=== PATIENT | male | born 1960 | race African-American/Black ===

== ENCOUNTER 2016-09-28 21:10 | Inpatient (IN) | payer OTHER ==
--- NOTE | 2016-09-28 21:30 | ED Physician Chart ---
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 Allergies:: Allergies Allergy/AdvReac Type Severity Reaction Status Date / Time No Known Allergies Allergy Verified 09/28/16 21:19 Historian:: Patient Review:: Nurse's Note Reviewed Review of Systems - Review of Systems General/Constitutional: No fever, No chills, No weight loss, No weakness, No diaphoresis, No edema, No loss of appetite Skin: No skin lesions, No rash, No bruising Head: No headache, No light-headedness Eyes: No loss of vision, No pain, No diplopia ENT: No earache, No nasal drainage, No sore throat, No tinnitus, Other ( Mandible Pain) Neck: No neck pain, No swelling, No thyromegaly, No stiffness, No mass noted Cardio Vascular: No chest pain, No palpitations, No PND, No orthopnea, No edema Pulmonary: No SOB, No cough, No sputum, No wheezing GI: No nausea, No vomiting, No diarrhea, No pain, No melena, No hematochezia, No constipation, No hematemesis G/U: No dysuria, No frequency, No hematuria Musculoskeletal: No bone or joint pain, No back pain, No muscle pain Endocrine: No polyuria, No polydipsia Psychiatric: No prior psych history, No depression, No anxiety, No suicidal ideation Hematopoietic: No bruising, No lymphadenopathy Allergic/Immuno: No urticaria, No angioedema Neurological: No syncope, No focal symptoms, No weakness, No paresthesia, No headache, No seizure, No dizziness, No confusion, No vertigo Past Medical History - Past Medical History Past Medical History: HTN, Other (Throat Cancer; Osteomyelitis) Family History: HTN, Cancer Social History: Smoker, Alcohol, No Drug Use Surgical History: other (Radical Neck Surgery) Psychiatricy History: Depression Medication: Reviewed Family Medical History - Family Member Mother History Unknown: Yes Physical Exam - Physical Examination General/Constitutional: Awake, Well-developed, well-nourished, Alert, No distress, GCS 15, Non-toxic appearing, Ambulatory Head: Atraumatic Eyes: Lids, conjuctiva normal, PERRL, EOMI Skin: Nl inspection, No rash, No skin lesions, No ecchymosis, Well hydrated, No lymphadenopathy ENMT: External ears, nose nl, Nasal exam nl, Lips, teeth, gums nl Other ENMT comments:: Right Mandible open Wound with Cellulitis and discharge Neck: Nontender, Full ROM w/o pain, No JVD, No nuchal rigidity, No bruit, No mass, No stridor Respiratory: Nl effort/Exclusion, Clear to Auscultation, No Wheeze/Rhonchi/Rales Cardio Vascular: RRR, No murmur, gallop, rubs, NL S1 S2 GI: No tenderness/rebounding/guarding, No organomegaly, No hernia, Normal BS's, Nondistended, No mass/bruits, No McBurney tenderness : No CVA tenderness Extremities: No tenderness or effusion, Full ROM, normal strength in all extremities, No edema, Normal digits & nails Neuro/Psych: Alert/oriented, DTR's symmetric, Normal sensory exam, Normal motor strength, Judgement/insight normal, Mood normal, Normal gait, No focal deficits Misc: normal gait, Normal back, No paraspinal tenderness ED Septic Shock - . Is Septic Shock (SBP<90, OR Lactate>4 mmol\L) present?: No - <6hrs of presentation: Assessment of Lungs: Lung CTA bilateral, Ventilator, Decreased BS, Rhonchi, No Rhonchi, Rales, No Rales, Wheezing, No Wheezing, Stridor, No Stridor, Other, Documented in PE Assessment of Heart: RRR, Thrill, No thrill, Gallops, No Gallops, S3, S4, Rub, No Rub, Murmur, No Murmur, Other, Documented in PE EKG Interpretation: NSR, ST elevation, No ST elevation, ST depression, No ST depression, PVCs, Bigeminy, Trigeminy, No Ectopy, Tachy, Librado, SVT, A-Flutter, A-Fib, AV Block, Other, Documented in Result Capillary refill evaluation: Capillary refill < 2 secs, Capillary refill > 2 secs, Other, Documented in PE Skin Exam: Warm, Dry, Good Turgur, Poor Turgor, Pallor, No Pallor, Diaphoretic, No Diaphoresis, Mottled, No Mottling, Cyanotic, Edema, No Edema, Erythema, No Erythema, Other, Documented in PE Reassessment (Disposition) - Reassessment Reassessment Condition:: Improved - Diagnosis Diagnosis:: Right Mandible Fracture; Osteomyelitis; Throat CA: Mandible Cellulitis and Wound - Aftercare/Follow up Instructions Aftercare/Follow-Up Instructions:: Counseled pt & family regarding lab results/ diagnosis & need follow up - Patient Disposition Admitted to:: Med/Surg Spoke to:: Dr. Samayoa Time:: 01:15 (pt to be admitted to Dr. Samayoa's Service) Condition at Disposition:: Stable, Improved ED Discharge Plan - Patient Disposition Admit/Discharge/Transfer: Acute Care w/in this hosp
[2016-09-28] MEDS ORDERED: Morphine Sulfate 2 mg/mL 1mL Syr IVP STA (21:36)
[2016-09-28] MEDS ORDERED: cefTRIAXone 1 GM in Sodium Chloride 0.9% 50 ML IV ONE (21:36)
[2016-09-28] MEDS ORDERED: Sodium Chloride 0.9% 500 ML IV ONE (21:42)
[2016-09-28] MEDS ORDERED: Morphine Sulfate 2 mg/mL 1mL Syr ONE (21:44)
[2016-09-28 22:01] LABS: % BASOPHILS 0.1 % (0.0-2.0); % EOSINOPHILS 2.6 % (0.0-5.0); % LYMPHOCYTES 22.1 % (20.0-50.0); % MONOCYTES 8.2 % (2.0-10.0); HEMATOCRIT 38.7 % (39.0-49.0); HEMOGLOBIN 12.8 gm/dL (13.2-17.3); MEAN CELL VOLUME 87.8 fl (80-99); MEAN CORPUSCULAR HEMOGLOBIN 29.1 pg (26.0-30.0); MEAN CORPUSCULAR HGB CONC 33.2 pg (28.0-36.0); MEAN PLATELET VOLUME 6.6 fl; NEUTROPHILE ABSOLUTE 3.8 Th/cmm (1.8-8.0); RED BLOOD COUNT 4.41 Mil/cmm (4.30-5.70); RED CELL DISTRIBUTION WIDTH 13.2 % (11.5-20.0); WHITE BLOOD COUNT 5.6 Th/cmm (4.8-10.8)
[2016-09-28 22:18] LABS: PROTHROMBIN TIME (TEST) 10.4 SECONDS (9.5-11.5)
[2016-09-28 22:19] LABS: ALKALINE PHOSPHATASE 72 U/L (34-104); ANION GAP 11.2 (7.0-16.0); BILIRUBIN,TOTAL 0.3 mg/dL (0.3-1.0); BUN - UREA NITROGEN 20 mg/dL (7-25); BUN/CREATININE RATIO 18.2; CALCIUM SERUM 9.3 mg/dL (8.6-10.3); CARBON DIOXIDE 26.8 mEq/L (21.0-31.0); CHLORIDE 101 mEq/L (98-107); CREATININE - SERUM 1.1 mg/dL (0.7-1.3); GLUCOSE 128 mg/dL (70-105); SGOT 15 U/L (13-39); SGPT/ALT 9 U/L (7-52); SODIUM SERUM 135 mEq/L (136-145)
[2016-09-28 22:24] LABS: PLATELET COUNT 297 Th/cmm (150-400)
[2016-09-29] MEDS ORDERED: Morphine Sulfate 2 mg/mL 1mL Syr IVP STA
[2016-09-29 04:42] VITALS: BP 114/88
[2016-09-29] MEDS: D5-0.45NS 1,000 ML IV SCH ×2 (06:05→20:46)
[2016-09-29] MEDS: Morphine Sulfate 2 mg/mL 1mL Syr IVP PRN ×3 (06:07→21:45)
[2016-09-29] MEDS ORDERED: Pneumococcal Vaccine 0.5 mL Vial IM ONE (10:00)
[2016-09-29] MEDS ORDERED: Influenza Vaccine 0.5 mL Syr IM ONE (10:00)
--- NOTE | 2016-09-29 12:22 | History & Physical ---
PATIENT IDENTIFICATION: A 56-year-old male. CHIEF COMPLAINT: "I have a jaw pain and I have osteonecrosis of my jaw." HISTORY OF PRESENT ILLNESS: A 56-year-old -Chinese male who has a history of hypertension, BPH, DJD, history of squamous cell carcinoma of throat, which was diagnosed in 2009. The patient underwent significant therapy including radiation. The patient developed osteonecrosis of the jaw. The patient stated that he has been having open wound on his right lower mandible area and having significant amount of pain. He has a primary doctor in [place]. According to his statement, he has been going to [place] and he is not getting his pain medicine. He is calling his [facility] to send the maxillofacial surgeon in order to take care of his underlying problem, but he is running around. He is frustrated and tired. He decided to come to the hospital because he has recently moved to in this area. The patient was seen by Emergency Room MD and I was advised to admit this patient for osteomyelitis, though we do not have ENT Service available in our hospital. PAST MEDICAL HISTORY: Remarkable for: 1. Hypertension. 2. BPH. 3. DJD. MEDICATIONS AT HOME: Lisinopril, Flomax and NSAID, which he does not remember. ALLERGIES: The patient is not allergic to medication. SOCIAL HISTORY: The patient lives in truck and he is able to park his truck in somebody's house and using the kitchen and bathroom. The patient has history of smoking, but no alcohol or drug use. FAMILY MEDICAL HISTORY: Remarkable for hypertension. REVIEW OF SYSTEMS: The patient is complaining about the pain on the right lower joint area. Denies any chest pain, short of breath. Denies any fever or chills. Denies any abdominal pain. Denies any hematemesis. Does have some occasional difficulty in swallowing. Denies any abdominal pain. Denies any nausea, vomiting, diarrhea, dysuria, hematuria, hematochezia, melena. No seizure or syncopal episode. PHYSICAL EXAMINATION: GENERAL: The patient is alert, awake, oriented, lying in the bed without any acute distress. VITAL SIGNS: Temperature 99.4, pulse 85, respiratory rate is 19, blood pressure 114/80. HEENT: Normocephalic, atraumatic. Pupils are reactive to light. There is significant amount of swelling on the right lower mandible area noted with open wound, which is draining for serosanguineous discharge. The patient has extensive surgical changes in right buccal mucosa noted with few absent teeth noted. Unable to open his oral cavity, unable to visualize posterior pharynx. NECK: Supple, no JVD, lymphadenopathy, thyromegaly HEART: Both heart sounds are regular. No S3, no S4, no murmur. CHEST: Lung equal in expansion, no wheezing, no crackles. ABDOMEN: Soft. No guarding, no rigidity. Liver and spleen palpable. No palpable mass. EXTREMITIES: No edema, no cyanosis, no clubbing. Pulses are +2. No calf tenderness noted. NEUROLOGIC: Nonfocal. AVAILABLE DIAGNOSTIC DATA: CT scan of the neck remarkable for: 1. Fracture to the body of the right mandible, which may be secondary to pathological fracture from neoplasm versus osteomyelitis. 2. Soft tissue swelling also noted in the right face, ____ mucosal thickening in the paranasal sinus also noted. There is a subcentimeter cervical chain lymph node swelling noted. Anterior ____ scarring noted within the upper lobe. This patient's EKG sinus rhythm, no ST-T changes representing acute ischemia. White count of 5.6, hemoglobin 12.8. PT, PTT are normal. BUN and creatinine is normal. Glucose of 128. Troponin is less than 0.01. Albumin of 3.8. CLINICAL IMPRESSION: 1. Fracture, right mandible able with possible osteomyelitis and cellulitis. The patient has open wound, needs ear, nose and throat evaluation and with long-term antibiotic. 2. Hypertension. 3. Benign prostatic hypertrophy. 4. Degenerative joint disease. 5. Chronic pain. PLAN: The patient is admitted at this time to medical floor, IV antibiotic Zosyn and vancomycin started. Infectious Disease consultation requested. Case management to look into the case, and transfer this patient to appropriate facility where the patient can have additional care as well. The patient will be placed on mechanical soft diet. Care plan has been reviewed and discussed with the patient, who was agreed with treatment plan. I have answered all his questions appropriately as well and adequate pain management will be provided. JOB# [id number]
--- NOTE | 2016-09-29 12:30 | Diagnostic Imaging Report ---
CT soft tissue the neck without IV contrast History: Pain Comparison: None Total DLP 445, CTD I 14 Technical axial images were obtained from the skull base to the upper thorax without IV contrast. Reconstructions were made. Findings: Exam is limited due to lack of IV contrast. There is almost complete opacification of right maxillary sinus. There is additional generalized mucosal thickening of the remaining visualized paranasal sinuses. There is ill-defined destructive change is seen along the body of the right mandible. Diffuse dental disease is also noted. There are also erosive changes and destructive changes seen along the throughout the right maxilla. Diffuse inflammatory changes are seen throughout the fascial superficial fat planes right greater than left with areas of soft tissue swelling. Assessment for fluid collection is limited as IV contrast was not administered. The thyroid gland appears atrophic. The epiglottis is grossly unremarkable. No prevertebral soft tissue swelling. The airways intact. Borderline prominent right parotid lymph nodes are noted. Chronic changes of the lung apices are seen with probable areas of scarring. Atelectatic changes of the lung apices are also noted. IMPRESSION: Destructive changes and probable fracture through the body of the right mandible. This may be secondary etiologies such as osteomyelitis or possibly neoplastic process. There are also diffuse erosive changes seen throughout the right maxilla along the base of the right maxillary sinus. Again these findings may be due to osteomyelitis and severe dental disease or less likely neoplastic process. Diffuse facial soft tissue swelling, right greater than left, most electronics parts sales representative of cellulitis Paranasal sinus inflammatory disease with almost complete opacification of the right maxillary sinus. Intact airway. Borderline prominent parotid gland lymph nodes nonspecific and possibly reactive. Note exam is limited due to lack of IV contrast .
--- NOTE | 2016-09-29 13:11 | Admit Criteria Form ---
Admit Criteria Forms - Admit Criteria Diagnosis: HEAD AND NECK DISEASE GRG Clinical Indications for Admission to Inpatient Care ( Place 'X' for any and all applicable criteria): Hospital admission is needed for appropriate care of the patient because of ANY ONE of the following (1)(2): [ ]I. Severe sinusitis as indicated by ANY ONE of the following (6)(13)(21) [ ]a) Suspected ROOF FITTER infection [ ]b) Bacteremia [ ]c) Hemodynamic instability [ ]d) Outpatient and observation care antibiotic treatment have failed or are not considered appropriate [ ]e) Surgical drainage needed that cannot be performed on an outpatient basis or observation. setting [ ]f) Suspected orbital involvement [ ]II. Acute glaucoma unresponsive to emergency treatment that requires medication or other treatment beyond the scope of observation care (1) [ ]III. Severe eye infection or inflammation (eg, uveitis) which is unresponsive to emergency treatment and requires medication or other treatment beyond the scope of observation care (1)(2)(3)(4) [ ]IV. Severe epistaxis requiring posterior packing (5)(6) [ ]V. Acute bacterial labyrinthitis(6)(7) [ ]. Viral labyrinthitis with symptoms uncontrollable on an outpatient or observation care basis (6)(7) [ ]VII. Severe necrotizing external otitis unresponsive to outpatient and observation care treatment(6) [ ]VIII. Otitis media requiring treatment beyond the scope of outpatient and observation care, as indicated by presence or persistence of ANY ONE of the following(6)(8)(9): [ ]a) Hemodynamic instability [ ]b) Mastoiditis [ ]c) Suspected ROOF FITTER infection [ ]d) Bacteremia [ ]e) Surgical drainage needed that cannot be performed as an outpatient. or in an observation setting. [ ]IX. Epiglottitis or supraglottitis(6)(11)(12)(13)(14) [ ]X. Stridor or laryngospasm (unresponsive to emergency management) (6)(11)( 12)(13)(14) [ ]XI. Acute pharyngitis or tonsillitis and ANY ONE of the following (14)(15)( 16): [ ]a) Hemodynamic instability remaining after emergency or observation level care (as appropriate) [ ]b) Surgical drainage needed that cannot be performed in outpatient or observation setting [ ]c) Mediastinitis [ ]d) Thrombophlebitis of internal jugular vein (Lemierre syndrome) [ ]XII. Sialoadenitis and ANY ONE of the following (17) (18) [ ]a) Hemodynamic instability remaining after emergency or observation level care(as appropriate) [ ]b) Surgical drainage needed that cannot be performed in outpatient or observation setting [ ]XIII. Airway blockage or inability to swallow (6)(12)(19)(20) [X]XIV.Complicated infection indicated by ANY ONE of the following(6)(13)(21)(22 ): [ ]a) Abscess or swelling causing airway difficulty(12) [ ]b) Bacteremia [ ]c) Hemodynamic instability [ ]d) Suspected ROOF FITTER infection [X]e) Outpatient and observation care antibiotic treatment have failed or are not considered appropriate [ ]f) Surgical drainage needed that cannot be performed on an outpatient basis or observation setting [X]g) Other management need that cannot be performed in outpatient or observation setting: [ ]XV. Severe trauma requiring inpatient medical treatment of eye, head, pharynx, or airway (1)(23)(24)(25926) [ ]XVI. Ischemic optic neuropathy(11) [ ]XVII.Head or Neck Disease condition and ANY ONE of the following: [ ]a) Symptom or finding for which emergency and observation care have failed or are not considered appropriate (Also use General Criteria: Observation Care as appropriate) [ ]b) Presence of ANY ONE of the following: [ ]i) A General Admission Criteria [ ]ii) A Pediatric General Admission Criteria The original [facility] content created by [facility] has been revised. The portions of the content which have been revised are identified through the use of italic text or in bold, and [facility] has neither reviewed nor approved the modified material. All other unmodified content is copyright [facility]. Please see references footnoted in the original [facility] edition 2016 Admit Criteria Met?: Yes
[2016-09-29] MEDS: Silver Antimicrobial Wound Gel 0.25 oz Tube TP SCH (14:58)
--- NOTE | 2016-09-30 02:10 | Consultation ---
REFERRING PHYSICIAN: Dr. Samayoa REASON FOR CONSULTATION: Facial cellulitis. 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 He developed open wound in the right lower jaw. It was associated with pain. He noted that he had developed wound draining pus. He tried to get maxillofacial surgeon referral, but unable to get any help. Ultimately, he came to the [facility] for further care. He was admitted to us for suspected osteomyelitis. CT scan of the soft tissue of neck showed changes, probably fracture to the body of right mandible. Etiology included osteomyelitis and neoplastic process. ID consult was called for further antibiotic management. PAST MEDICAL HISTORY: Includes hypertension, BPH, DJD, and small cell carcinoma of throat, osteonecrosis of right mandible, osteomyelitis and neoplastic process of right mandible and maxilla. MEDICATIONS: As per medication reconciliation sheet. Antibiotic caal, the patient is on vancomycin and Zosyn. ALLERGIES: NKDA. SOCIAL HISTORY: The patient lives in a truck. The patient has history of smoking, but denies alcohol or drug use. FAMILY HISTORY: Hypertension. REVIEW OF SYSTEMS: GENERAL: The patient has no fever and no chills. HEENT: No diplopia, no photophobia, and no sore throat. The patient has significant swelling and pain of right lower face with draining wound, likely sinus. RESPIRATORY: The patient denies any cough or shortness of breath. CARDIOVASCULAR: No chest pain or palpitation. GASTROINTESTINAL: No nausea, no vomiting, no diarrhea, and no constipation. GENITOURINARY: No dysuria. NEUROLOGIC: No headache, no dizziness, and no focal weakness. PHYSICAL EXAMINATION: VITAL SIGNS: Shows temperature is 98.3 degrees Fahrenheit, pulse 90, respirations 20, and blood pressure 106/75. GENERAL: The patient is comfortable lying in the bed, not in acute distress. HEENT: Head is normocephalic and atraumatic. Oral cavity is moist, pink tongue. Eyes: No pallor, no icterus. FACE: Right side of the lower face is swollen including maxillary area. There is a large ulcer on the lower part of the jaw on right side with draining sinus. Pus is present. NECK: Supple. No JVD and no carotid bruit. Trachea in midline. CHEST: Bilateral breath sounds. No crackles or wheezing. HEART: S1, S2 within normal limits. Regular rhythm. ABDOMEN: Soft, nontender, and nondistended. Bowel sounds present. EXTREMITIES: No cyanosis, no clubbing, and no edema. NEUROLOGIC: Alert, awake, and oriented x 3. No focal deficits. LABORATORY DATA: Current lab shows WBC count is 5600, hemoglobin 12.8, hematocrit 38.7, platelets are 297,000, and neutrophil is 67%. INR is 1. Sodium 135, potassium 4, chloride 101, bicarb is 27, BUN is 20, creatinine 1.1, and glucose is 128. Blood culture 2 sets are negative. Wound cultures are pending. IMPRESSION: 1. Right facial cellulitis with osteomyelitis due to secondary infection of neoplastic process. 2. Right maxillary and mandibular neoplasm with osteomyelitis and fractures. 3. Hypertension. 4. Benign prostatic hypertrophy. RECOMMENDATIONS: Continue vancomycin and Zosyn. The patient needs high level of care. May also consider hospice care as prognosis grave in short or correction. Thank you, Dr. Samayoa for involving me in taking care of this patient. JOB# [id number] MTDGabriele
[2016-09-30 06:30] LABS: % BASOPHILS 0.1 % (0.0-2.0); % EOSINOPHILS 4.1 % (0.0-5.0); % LYMPHOCYTES 20.9 % (20.0-50.0); % MONOCYTES 9.6 % (2.0-10.0); % NEUTROPHILS 65.3 % (40.0-80.0); HEMOGLOBIN 12.5 gm/dL (13.2-17.3); MEAN CORPUSCULAR HEMOGLOBIN 29.7 pg (26.0-30.0); MEAN CORPUSCULAR HGB CONC 33.7 pg (28.0-36.0); NEUTROPHILE ABSOLUTE 3.3 Th/cmm (1.8-8.0); PLATELET COUNT 306 Th/cmm (150-400); RED CELL DISTRIBUTION WIDTH 13.2 % (11.5-20.0)
[2016-09-30 06:47] LABS: ALB/GLOB RATIO 0.9 (1.0-1.8); ALKALINE PHOSPHATASE 59 U/L (34-104); ANION GAP 6.9 (7.0-16.0); BILIRUBIN,TOTAL 0.4 mg/dL (0.3-1.0); BUN - UREA NITROGEN 14 mg/dL (7-25); BUN/CREATININE RATIO 11.7; CARBON DIOXIDE 27.3 mEq/L (21.0-31.0); CHLORIDE 105 mEq/L (98-107); CREATININE - SERUM 1.2 mg/dL (0.7-1.3); GLUCOSE 97 mg/dL (70-105); POTASSIUM SERUM 4.2 mEq/L (3.5-5.1); SGOT 14 U/L (13-39); SGPT/ALT 11 U/L (7-52); SODIUM SERUM 135 mEq/L (136-145)
--- NOTE | 2016-09-30 12:44 | Infectious Disease Prog Note ---
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 Infectious Disease Objective - Results Result Diagrams: 09/30/16 05:55 09/30/16 05:55 Recent Labs: Laboratory Last Values WBC 5.0 Th/cmm (4.8-10.8) 09/30/16 05:55 RBC 4.20 Mil/cmm (4.30-5.70) L 09/30/16 05:55 Hgb 12.5 gm/dL (13.2-17.3) L 09/30/16 05:55 Hct 37.0 % (39.0-49.0) L 09/30/16 05:55 MCV 88.0 fl (80-99) 09/30/16 05:55 MCH 29.7 pg (26.0-30.0) 09/30/16 05:55 MCHC Differential 33.7 pg (28.0-36.0) 09/30/16 05:55 RDW 13.2 % (11.5-20.0) 09/30/16 05:55 Plt Count 306 Th/cmm (150-400) 09/30/16 05:55 MPV 6.0 fl 09/30/16 05:55 Neutrophils % 65.3 % (40.0-80.0) 09/30/16 05:55 Lymphocytes % 20.9 % (20.0-50.0) 09/30/16 05:55 Monocytes % 9.6 % (2.0-10.0) 09/30/16 05:55 Eosinophils % 4.1 % (0.0-5.0) 09/30/16 05:55 Basophils % 0.1 % (0.0-2.0) 09/30/16 05:55 PT 10.4 SECONDS (9.5-11.5) 09/28/16 21:35 INR 1.00 (0.5-1.4) 09/28/16 21:35 PTT (Actin FS) 25.7 SECONDS (26.0-38.0) L 09/28/16 21:35 Sodium 135 mEq/L (136-145) L 09/30/16 05:55 Potassium 4.2 mEq/L (3.5-5.1) 09/30/16 05:55 Chloride 105 mEq/L (98-107) 09/30/16 05:55 Carbon Dioxide 27.3 mEq/L (21.0-31.0) 09/30/16 05:55 Anion Gap 6.9 (7.0-16.0) L 09/30/16 05:55 BUN 14 mg/dL (7-25) 09/30/16 05:55 Creatinine 1.2 mg/dL (0.7-1.3) 09/30/16 05:55 Est GFR ( Amer) > 60.0 ml/min (>90) 09/30/16 05:55 Est GFR (Non-Af Amer) > 60.0 ml/min 09/30/16 05:55 BUN/Creatinine Ratio 11.7 09/30/16 05:55 Glucose 97 mg/dL (70-105) 09/30/16 05:55 Whole Bld Lactic Acid 1.95 mmol/L (0.60-1.99) 09/28/16 21:35 Calcium 9.0 mg/dL (8.6-10.3) 09/30/16 05:55 Total Bilirubin 0.4 mg/dL (0.3-1.0) 09/30/16 05:55 AST 14 U/L (13-39) 09/30/16 05:55 ALT 11 U/L (7-52) 09/30/16 05:55 Alkaline Phosphatase 59 U/L (34-104) 09/30/16 05:55 Creatine Kinase 72 U/L (30-223) 09/28/16 21:35 Troponin I < 0.01 ng/mL (0.01-0.05) L 09/28/16 21:35 Total Protein 6.8 gm/dL (6.0-8.3) 09/30/16 05:55 Albumin 3.3 gm/dL (4.2-5.5) L 09/30/16 05:55 Globulin 3.5 gm/dL 09/30/16 05:55 Albumin/Globulin Ratio 0.9 (1.0-1.8) L 09/30/16 05:55 Vancomycin Trough 11.9 ug/mL (10-20) 09/30/16 09:10 - Physical Exam Vitals and I&O: Vital Signs Temp 97.0 F 09/30/16 12:00 Pulse 83 09/30/16 12:00 Resp 18 09/30/16 12:00 BP 115/75 09/30/16 12:00 Pulse Ox 95 09/30/16 12:00 Intake & Output 09/29/16 09/30/16 09/30/16 18:59 06:59 18:59 Intake Total 1550 350 Balance 1550 350 Intake: Intake, IV Amount 1550 350 D5-0.45NS 1,000 ml @ 100 1000 mls/hr IV .Q10H [facility] Rx#: [id number] Piperacillin Sodium/ 300 100 Tazobact 4.5 gm In Sodium Chloride 0.9% 100 ml @ 100 mls/hr IV Q6HR [facility] Rx #:[id number] Vancomycin HCl 1 gm In 250 250 Sodium Chloride 0.9% 250 ml @ 165 mls/hr IV Q12H [facility] Rx#:[id number] Other: Stool Characteristics Soft Soft Active Medications: Current Medications Dextrose/Sodium Chloride (D5-0.45ns) 1,000 mls @ 100 mls/hr IV .Q10H [facility] Stop: 11/28/16 01:47 Last Admin: 09/29/16 20:46 Dose: 100 mls/hr Piperacillin Sod/Tazobactam (Sod 4.5 gm/ Sodium Chloride) 100 mls @ 100 mls/hr IV Q6HR [facility] Stop: 11/28/16 05:59 Last Admin: 09/30/16 05:45 Dose: 100 mls/hr Vancomycin HCl 1 gm/ Sodium (Chloride) 250 mls @ 165 mls/hr IV Q12H [facility] Stop: 11/28/16 09:59 Last Admin: 09/30/16 11:00 Dose: 165 mls/hr Lisinopril (Zestril) 10 mg PO DAILY [facility] Stop: 11/29/16 08:59 Last Admin: 09/30/16 08:38 Dose: 10 mg Miscellaneous (Vancomycin Iv Per Pharmacy) 1 ea MC PRN PRN PRN Reason: PROTOCOL Stop: 11/28/16 01:46 Morphine Sulfate (Morphine) 2 mg IVP Q3HR PRN PRN Reason: Pain (Severe) Stop: 11/28/16 01:46 Last Admin: 09/29/16 21:45 Dose: 2 mg Ondansetron HCl (Zofran) 4 mg IV Q6H PRN PRN Reason: Nausea / Vomiting Stop: 11/28/16 01:46 Tamsulosin HCl (Flomax) 0.4 mg PO DAILY [facility] Stop: 11/29/16 08:59 Last Admin: 09/30/16 08:38 Dose: 0.4 mg Wound Care/Dressing Products (Silvasorb) 1 appl TP DAILY [facility] Stop: 11/28/16 12:59 Last Admin: 09/29/16 14:58 Dose: 1 appl General: no acute distress, well developed, well nourished HEENT: atraumatic, normocephalic, PERRLA, EOMI, moist mucous membrane, other ( swelling of the jaw on right side. woudn draining pus.) Neck: supple, no thyromegaly, no lymphadenopathy Cardiovascular: S1S2, regular Lungs: clear to auscultation bilaterally Abdomen: soft, no tender, no distended Extremities: no cyanosis, no clubbing, no edema Neurological: awake, alert, oriented Skin: intact Infectious Disease Assmt/Plan - Problem List Patient Problems: All Active Problems PALPAIT (Acute) Palpitation (Acute 02/23/14) R00.2 - Assessment Assessment: Impression: 1. 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 2. Osteonecrosis of the right sided jaw. - Plan Plan: Continue same antibiotics : vanco nad zosyn. Patient is waiting for transfer to higher level of care.
[2016-09-30] MEDS: Morphine Sulfate 2 mg/mL 1mL Syr IVP PRN ×2 (13:08→17:28)
[2016-09-30] MEDS: D5-0.45NS 1,000 ML IV SCH ×2 (14:38→17:05)
[2016-09-30] MEDS: Silver Antimicrobial Wound Gel 0.25 oz Tube TP SCH (15:37)
--- NOTE | 2016-09-30 16:16 | Internal Medicine Prog Note ---
Internal Medicine Subjective - Subjective Patient seen and examined:: with staff, chart reviewed Patient is:: awake, verbal, interactive Per staff patient is:: no adverse event, confused Internal Medicine Objective - Results Result Diagrams: 09/30/16 05:55 09/30/16 05:55 Recent Labs: Laboratory Last Values WBC 5.0 Th/cmm (4.8-10.8) 09/30/16 05:55 RBC 4.20 Mil/cmm (4.30-5.70) L 09/30/16 05:55 Hgb 12.5 gm/dL (13.2-17.3) L 09/30/16 05:55 Hct 37.0 % (39.0-49.0) L 09/30/16 05:55 MCV 88.0 fl (80-99) 09/30/16 05:55 MCH 29.7 pg (26.0-30.0) 09/30/16 05:55 MCHC Differential 33.7 pg (28.0-36.0) 09/30/16 05:55 RDW 13.2 % (11.5-20.0) 09/30/16 05:55 Plt Count 306 Th/cmm (150-400) 09/30/16 05:55 MPV 6.0 fl 09/30/16 05:55 Neutrophils % 65.3 % (40.0-80.0) 09/30/16 05:55 Lymphocytes % 20.9 % (20.0-50.0) 09/30/16 05:55 Monocytes % 9.6 % (2.0-10.0) 09/30/16 05:55 Eosinophils % 4.1 % (0.0-5.0) 09/30/16 05:55 Basophils % 0.1 % (0.0-2.0) 09/30/16 05:55 PT 10.4 SECONDS (9.5-11.5) 09/28/16 21:35 INR 1.00 (0.5-1.4) 09/28/16 21:35 PTT (Actin FS) 25.7 SECONDS (26.0-38.0) L 09/28/16 21:35 Sodium 135 mEq/L (136-145) L 09/30/16 05:55 Potassium 4.2 mEq/L (3.5-5.1) 09/30/16 05:55 Chloride 105 mEq/L (98-107) 09/30/16 05:55 Carbon Dioxide 27.3 mEq/L (21.0-31.0) 09/30/16 05:55 Anion Gap 6.9 (7.0-16.0) L 09/30/16 05:55 BUN 14 mg/dL (7-25) 09/30/16 05:55 Creatinine 1.2 mg/dL (0.7-1.3) 09/30/16 05:55 Est GFR ( Amer) > 60.0 ml/min (>90) 09/30/16 05:55 Est GFR (Non-Af Amer) > 60.0 ml/min 09/30/16 05:55 BUN/Creatinine Ratio 11.7 09/30/16 05:55 Glucose 97 mg/dL (70-105) 09/30/16 05:55 Whole Bld Lactic Acid 1.95 mmol/L (0.60-1.99) 09/28/16 21:35 Calcium 9.0 mg/dL (8.6-10.3) 09/30/16 05:55 Total Bilirubin 0.4 mg/dL (0.3-1.0) 09/30/16 05:55 AST 14 U/L (13-39) 09/30/16 05:55 ALT 11 U/L (7-52) 09/30/16 05:55 Alkaline Phosphatase 59 U/L (34-104) 09/30/16 05:55 Creatine Kinase 72 U/L (30-223) 09/28/16 21:35 Troponin I < 0.01 ng/mL (0.01-0.05) L 09/28/16 21:35 Total Protein 6.8 gm/dL (6.0-8.3) 09/30/16 05:55 Albumin 3.3 gm/dL (4.2-5.5) L 09/30/16 05:55 Globulin 3.5 gm/dL 09/30/16 05:55 Albumin/Globulin Ratio 0.9 (1.0-1.8) L 09/30/16 05:55 Vancomycin Trough 11.9 ug/mL (10-20) 09/30/16 09:10 - Physical Exam Vitals and I&O: Vital Signs Temp 97.0 F 09/30/16 12:00 Pulse 83 09/30/16 12:00 Resp 18 09/30/16 12:00 BP 115/75 09/30/16 12:00 Pulse Ox 95 09/30/16 12:00 Intake & Output 09/29/16 09/30/16 09/30/16 18:59 06:59 18:59 Intake Total 1550 1450 Balance 1550 1450 Intake: Intake, IV Amount 1550 1450 D5-0.45NS 1,000 ml @ 100 1000 1000 mls/hr IV .Q10H [facility] Rx#: [id number] Piperacillin Sodium/ 300 200 Tazobact 4.5 gm In Sodium Chloride 0.9% 100 ml @ 100 mls/hr IV Q6HR [facility] Rx #:[id number] Vancomycin HCl 1 gm In 250 250 Sodium Chloride 0.9% 250 ml @ 165 mls/hr IV Q12H [facility] Rx#:[id number] Other: Stool Characteristics Soft Soft Active Medications: Current Medications Piperacillin Sod/Tazobactam (Sod 4.5 gm/ Sodium Chloride) 100 mls @ 100 mls/hr IV Q6HR [facility] Stop: 11/28/16 05:59 Last Admin: 09/30/16 12:51 Dose: 100 mls/hr Vancomycin HCl 1 gm/ Sodium (Chloride) 250 mls @ 165 mls/hr IV Q12H [facility] Stop: 11/28/16 09:59 Last Admin: 09/30/16 11:00 Dose: 165 mls/hr Dextrose/Sodium Chloride (D5-0.45ns) 1,000 mls @ 70 mls/hr IV .[id number] [facility] Stop: 11/29/16 16:12 Lisinopril (Zestril) 10 mg PO DAILY [facility] Stop: 11/29/16 08:59 Last Admin: 09/30/16 08:38 Dose: 10 mg Miscellaneous (Vancomycin Iv Per Pharmacy) 1 ea [facility] PRN PRN PRN Reason: PROTOCOL Stop: 11/28/16 01:46 Morphine Sulfate (Morphine) 2 mg IVP Q3HR PRN PRN Reason: Pain (Severe) Stop: 11/28/16 01:46 Last Admin: 09/30/16 13:08 Dose: 2 mg Ondansetron HCl (Zofran) 4 mg IV Q6H PRN PRN Reason: Nausea / Vomiting Stop: 11/28/16 01:46 Tamsulosin HCl (Flomax) 0.4 mg PO DAILY [facility] Stop: 11/29/16 08:59 Last Admin: 09/30/16 08:38 Dose: 0.4 mg Wound Care/Dressing Products (Silvasorb) 1 appl TP DAILY [facility] Stop: 11/28/16 12:59 Last Admin: 09/30/16 15:37 Dose: 1 appl General: demented HEENT: other (wound r mandible see pic w erythema) Lungs: CTAB Cardiovascular: RRR, Normal S1, Normal S2 Abdomen: soft non-tender, globular Extremities: excoriation Neurological: no change Internal Medicine Assmt/Plan - Assessment Assessment: r mandible cellulitis htn bph djd ch pain syndrome - Plan Plan: cont on iv abx wound care id follow up pain control ramos tiwari
[2016-10-01] MEDS: D5-0.45NS 1,000 ML IV SCH (06:32)
[2016-10-01] MEDS: Silver Antimicrobial Wound Gel 0.25 oz Tube TP SCH (10:07)
[2016-10-01] MEDS: Morphine Sulfate 2 mg/mL 1mL Syr IVP PRN ×3 (11:59→22:07)
--- NOTE | 2016-10-01 13:40 | Infectious Disease Prog Note ---
Infectious Disease Subjective - Review of Systems Service Date: 10/01/16 Subjective: No change. Infectious Disease Objective - Results Result Diagrams: 09/30/16 05:55 09/30/16 05:55 Recent Labs: Laboratory Last Values WBC 5.0 Th/cmm (4.8-10.8) 09/30/16 05:55 RBC 4.20 Mil/cmm (4.30-5.70) L 09/30/16 05:55 Hgb 12.5 gm/dL (13.2-17.3) L 09/30/16 05:55 Hct 37.0 % (39.0-49.0) L 09/30/16 05:55 MCV 88.0 fl (80-99) 09/30/16 05:55 MCH 29.7 pg (26.0-30.0) 09/30/16 05:55 MCHC Differential 33.7 pg (28.0-36.0) 09/30/16 05:55 RDW 13.2 % (11.5-20.0) 09/30/16 05:55 Plt Count 306 Th/cmm (150-400) 09/30/16 05:55 MPV 6.0 fl 09/30/16 05:55 Neutrophils % 65.3 % (40.0-80.0) 09/30/16 05:55 Lymphocytes % 20.9 % (20.0-50.0) 09/30/16 05:55 Monocytes % 9.6 % (2.0-10.0) 09/30/16 05:55 Eosinophils % 4.1 % (0.0-5.0) 09/30/16 05:55 Basophils % 0.1 % (0.0-2.0) 09/30/16 05:55 PT 10.4 SECONDS (9.5-11.5) 09/28/16 21:35 INR 1.00 (0.5-1.4) 09/28/16 21:35 PTT (Actin FS) 25.7 SECONDS (26.0-38.0) L 09/28/16 21:35 Sodium 135 mEq/L (136-145) L 09/30/16 05:55 Potassium 4.2 mEq/L (3.5-5.1) 09/30/16 05:55 Chloride 105 mEq/L (98-107) 09/30/16 05:55 Carbon Dioxide 27.3 mEq/L (21.0-31.0) 09/30/16 05:55 Anion Gap 6.9 (7.0-16.0) L 09/30/16 05:55 BUN 14 mg/dL (7-25) 09/30/16 05:55 Creatinine 1.2 mg/dL (0.7-1.3) 09/30/16 05:55 Est GFR ( Amer) > 60.0 ml/min (>90) 09/30/16 05:55 Est GFR (Non-Af Amer) > 60.0 ml/min 09/30/16 05:55 BUN/Creatinine Ratio 11.7 09/30/16 05:55 Glucose 97 mg/dL (70-105) 09/30/16 05:55 Whole Bld Lactic Acid 1.95 mmol/L (0.60-1.99) 09/28/16 21:35 Calcium 9.0 mg/dL (8.6-10.3) 09/30/16 05:55 Total Bilirubin 0.4 mg/dL (0.3-1.0) 09/30/16 05:55 AST 14 U/L (13-39) 09/30/16 05:55 ALT 11 U/L (7-52) 09/30/16 05:55 Alkaline Phosphatase 59 U/L (34-104) 09/30/16 05:55 Creatine Kinase 72 U/L (30-223) 09/28/16 21:35 Troponin I < 0.01 ng/mL (0.01-0.05) L 09/28/16 21:35 Total Protein 6.8 gm/dL (6.0-8.3) 09/30/16 05:55 Albumin 3.3 gm/dL (4.2-5.5) L 09/30/16 05:55 Globulin 3.5 gm/dL 09/30/16 05:55 Albumin/Globulin Ratio 0.9 (1.0-1.8) L 09/30/16 05:55 Vancomycin Trough 11.9 ug/mL (10-20) 09/30/16 09:10 - Physical Exam Vitals and I&O: Vital Signs Temp 97.9 F 10/01/16 08:00 Pulse 79 10/01/16 10:06 Resp 18 10/01/16 08:00 BP 104/65 10/01/16 10:06 Pulse Ox 100 10/01/16 08:00 Intake & Output 09/30/16 10/01/16 10/01/16 18:59 06:59 18:59 Intake Total 1250 1491.5 100 Output Total 700 Balance 1250 791.5 100 Intake: Intake, IV Amount 450 1291.5 100 D5-0.45NS 1,000 ml @ 70 941.5 mls/hr IV .[id number] [facility] Rx #:[id number] Piperacillin Sodium/ 200 100 100 Tazobact 4.5 gm In Sodium Chloride 0.9% 100 ml @ 100 mls/hr IV Q6HR [facility] Rx #:[id number] Vancomycin HCl 1 gm In 250 250 Sodium Chloride 0.9% 250 ml @ 165 mls/hr IV Q12H [facility] Rx#:[id number] Oral 800 200 Output: Urine 700 Other: # Voids 1,300 3 # Bowel Movements 0 Stool Characteristics Soft Active Medications: Current Medications Piperacillin Sod/Tazobactam (Sod 4.5 gm/ Sodium Chloride) 100 mls @ 100 mls/hr IV Q6HR [facility] Stop: 11/28/16 05:59 Last Infusion: 10/01/16 07:31 Dose: Infused Vancomycin HCl 1 gm/ Sodium (Chloride) 250 mls @ 165 mls/hr IV Q12H [facility] Stop: 11/28/16 09:59 Last Admin: 10/01/16 10:00 Dose: 125 mls/hr Dextrose/Sodium Chloride (D5-0.45ns) 1,000 mls @ 70 mls/hr IV .[id number] [facility] Stop: 11/29/16 16:12 Last Admin: 10/01/16 06:32 Dose: 70 mls/hr Lisinopril (Zestril) 10 mg PO DAILY [facility] Stop: 11/29/16 08:59 Last Admin: 10/01/16 10:06 Dose: Not Given Miscellaneous (Vancomycin Iv Per Pharmacy) 1 ea [facility] PRN PRN PRN Reason: PROTOCOL Stop: 11/28/16 01:46 Morphine Sulfate (Morphine) 2 mg IVP Q3HR PRN PRN Reason: Pain (Severe) Stop: 11/28/16 01:46 Last Admin: 10/01/16 11:59 Dose: 2 mg Ondansetron HCl (Zofran) 4 mg IV Q6H PRN PRN Reason: Nausea / Vomiting Stop: 11/28/16 01:46 Tamsulosin HCl (Flomax) 0.4 mg PO DAILY [facility] Stop: 11/29/16 08:59 Last Admin: 10/01/16 10:07 Dose: 0.4 mg Wound Care/Dressing Products (Silvasorb) 1 appl TP DAILY [facility] Stop: 11/28/16 12:59 Last Admin: 10/01/16 10:07 Dose: 1 appl General: no acute distress, well developed, well nourished HEENT: atraumatic, normocephalic, PERRLA, EOMI, other (same chnages on right lower face.) Neck: supple, no thyromegaly Cardiovascular: S1S2, regular Lungs: clear to auscultation bilaterally, clear to percussion Abdomen: soft, no tender, no distended Extremities: no cyanosis, no clubbing, no edema Neurological: awake, alert, oriented Infectious Disease Assmt/Plan - Problem List Patient Problems: All Active Problems PALPAIT (Acute) Palpitation (Acute 02/23/14) R00.2 - Assessment Assessment: Impression: 1. 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 2. Osteonecrosis of the right sided jaw. - Plan Plan: Continue same antibiotics : vanco and zosyn. Patient is waiting for transfer to higher level of care.
--- NOTE | 2016-10-01 13:50 | Internal Medicine Prog Note ---
Internal Medicine Subjective - Subjective Service Date: 10/01/16 Patient seen and examined:: with staff Patient is:: awake Per staff patient is:: no adverse event Internal Medicine Objective - Results Result Diagrams: 09/30/16 05:55 09/30/16 05:55 Recent Labs: Laboratory Last Values WBC 5.0 Th/cmm (4.8-10.8) 09/30/16 05:55 RBC 4.20 Mil/cmm (4.30-5.70) L 09/30/16 05:55 Hgb 12.5 gm/dL (13.2-17.3) L 09/30/16 05:55 Hct 37.0 % (39.0-49.0) L 09/30/16 05:55 MCV 88.0 fl (80-99) 09/30/16 05:55 MCH 29.7 pg (26.0-30.0) 09/30/16 05:55 MCHC Differential 33.7 pg (28.0-36.0) 09/30/16 05:55 RDW 13.2 % (11.5-20.0) 09/30/16 05:55 Plt Count 306 Th/cmm (150-400) 09/30/16 05:55 MPV 6.0 fl 09/30/16 05:55 Neutrophils % 65.3 % (40.0-80.0) 09/30/16 05:55 Lymphocytes % 20.9 % (20.0-50.0) 09/30/16 05:55 Monocytes % 9.6 % (2.0-10.0) 09/30/16 05:55 Eosinophils % 4.1 % (0.0-5.0) 09/30/16 05:55 Basophils % 0.1 % (0.0-2.0) 09/30/16 05:55 PT 10.4 SECONDS (9.5-11.5) 09/28/16 21:35 INR 1.00 (0.5-1.4) 09/28/16 21:35 PTT (Actin FS) 25.7 SECONDS (26.0-38.0) L 09/28/16 21:35 Sodium 135 mEq/L (136-145) L 09/30/16 05:55 Potassium 4.2 mEq/L (3.5-5.1) 09/30/16 05:55 Chloride 105 mEq/L (98-107) 09/30/16 05:55 Carbon Dioxide 27.3 mEq/L (21.0-31.0) 09/30/16 05:55 Anion Gap 6.9 (7.0-16.0) L 09/30/16 05:55 BUN 14 mg/dL (7-25) 09/30/16 05:55 Creatinine 1.2 mg/dL (0.7-1.3) 09/30/16 05:55 Est GFR ( Amer) > 60.0 ml/min (>90) 09/30/16 05:55 Est GFR (Non-Af Amer) > 60.0 ml/min 09/30/16 05:55 BUN/Creatinine Ratio 11.7 09/30/16 05:55 Glucose 97 mg/dL (70-105) 09/30/16 05:55 Whole Bld Lactic Acid 1.95 mmol/L (0.60-1.99) 09/28/16 21:35 Calcium 9.0 mg/dL (8.6-10.3) 09/30/16 05:55 Total Bilirubin 0.4 mg/dL (0.3-1.0) 09/30/16 05:55 AST 14 U/L (13-39) 09/30/16 05:55 ALT 11 U/L (7-52) 09/30/16 05:55 Alkaline Phosphatase 59 U/L (34-104) 09/30/16 05:55 Creatine Kinase 72 U/L (30-223) 09/28/16 21:35 Troponin I < 0.01 ng/mL (0.01-0.05) L 09/28/16 21:35 Total Protein 6.8 gm/dL (6.0-8.3) 09/30/16 05:55 Albumin 3.3 gm/dL (4.2-5.5) L 09/30/16 05:55 Globulin 3.5 gm/dL 09/30/16 05:55 Albumin/Globulin Ratio 0.9 (1.0-1.8) L 09/30/16 05:55 Vancomycin Trough 11.9 ug/mL (10-20) 09/30/16 09:10 - Physical Exam Vitals and I&O: Vital Signs Temp 97.9 F 10/01/16 08:00 Pulse 79 10/01/16 10:06 Resp 18 10/01/16 08:00 BP 104/65 10/01/16 10:06 Pulse Ox 100 10/01/16 08:00 Intake & Output 09/30/16 10/01/16 10/01/16 18:59 06:59 18:59 Intake Total 1250 1491.5 100 Output Total 700 Balance 1250 791.5 100 Intake: Intake, IV Amount 450 1291.5 100 D5-0.45NS 1,000 ml @ 70 941.5 mls/hr IV .[id number] [facility] Rx #:[id number] Piperacillin Sodium/ 200 100 100 Tazobact 4.5 gm In Sodium Chloride 0.9% 100 ml @ 100 mls/hr IV Q6HR [facility] Rx #:[id number] Vancomycin HCl 1 gm In 250 250 Sodium Chloride 0.9% 250 ml @ 165 mls/hr IV Q12H [facility] Rx#:[id number] Oral 800 200 Output: Urine 700 Other: # Voids 1,300 3 # Bowel Movements 0 Stool Characteristics Soft Active Medications: Current Medications Piperacillin Sod/Tazobactam (Sod 4.5 gm/ Sodium Chloride) 100 mls @ 100 mls/hr IV Q6HR [facility] Stop: 11/28/16 05:59 Last Admin: 10/01/16 13:47 Dose: 100 mls/hr Vancomycin HCl 1 gm/ Sodium (Chloride) 250 mls @ 165 mls/hr IV Q12H [facility] Stop: 11/28/16 09:59 Last Admin: 10/01/16 10:00 Dose: 125 mls/hr Dextrose/Sodium Chloride (D5-0.45ns) 1,000 mls @ 70 mls/hr IV .[id number] [facility] Stop: 11/29/16 16:12 Last Admin: 10/01/16 06:32 Dose: 70 mls/hr Lisinopril (Zestril) 10 mg PO DAILY [facility] Stop: 11/29/16 08:59 Last Admin: 10/01/16 10:06 Dose: Not Given Miscellaneous (Vancomycin Iv Per Pharmacy) 1 ea [facility] PRN PRN PRN Reason: PROTOCOL Stop: 11/28/16 01:46 Morphine Sulfate (Morphine) 2 mg IVP Q3HR PRN PRN Reason: Pain (Severe) Stop: 11/28/16 01:46 Last Admin: 10/01/16 11:59 Dose: 2 mg Ondansetron HCl (Zofran) 4 mg IV Q6H PRN PRN Reason: Nausea / Vomiting Stop: 11/28/16 01:46 Tamsulosin HCl (Flomax) 0.4 mg PO DAILY [facility] Stop: 11/29/16 08:59 Last Admin: 10/01/16 10:07 Dose: 0.4 mg Wound Care/Dressing Products (Silvasorb) 1 appl TP DAILY [facility] Stop: 11/28/16 12:59 Last Admin: 10/01/16 10:07 Dose: 1 appl General: alert HEENT: NC/AT, PERRLA Neck: Supple Lungs: CTAB Cardiovascular: RRR, Normal S1, Normal S2, without murmur Abdomen: soft non-tender, non-distended, positive bowel sound Neurological: no change Internal Medicine Assmt/Plan - Assessment Assessment: r mandible cellulitis htn bph djd ch pain syndrome - Plan Plan: CONTINUE IVABX F/U LABS CONTINUE CURRENT TX
[2016-10-02] MEDS: D5-0.45NS 1,000 ML IV SCH ×2 (01:05→11:17)
[2016-10-02 07:19] LABS: ANION GAP 7.4 (7.0-16.0); BUN - UREA NITROGEN 16 mg/dL (7-25); BUN/CREATININE RATIO 12.3; CARBON DIOXIDE 27.9 mEq/L (21.0-31.0); CHLORIDE 104 mEq/L (98-107); CREATININE - SERUM 1.3 mg/dL (0.7-1.3); GLUCOSE 94 mg/dL (70-105); POTASSIUM SERUM 4.3 mEq/L (3.5-5.1); SODIUM SERUM 135 mEq/L (136-145)
[2016-10-02 07:49] LABS: % BASOPHILS 0.4 % (0.0-2.0); % EOSINOPHILS 3.9 % (0.0-5.0); % LYMPHOCYTES 19.3 % (20.0-50.0); % NEUTROPHILS 68.4 % (40.0-80.0); HEMATOCRIT 36.1 % (39.0-49.0); HEMOGLOBIN 12.2 gm/dL (13.2-17.3); MEAN CELL VOLUME 88.2 fl (80-99); MEAN CORPUSCULAR HEMOGLOBIN 29.9 pg (26.0-30.0); MEAN CORPUSCULAR HGB CONC 33.9 pg (28.0-36.0); NEUTROPHILE ABSOLUTE 4.3 Th/cmm (1.8-8.0); PLATELET COUNT 277 Th/cmm (150-400); RED BLOOD COUNT 4.09 Mil/cmm (4.30-5.70); RED CELL DISTRIBUTION WIDTH 13.2 % (11.5-20.0)
[2016-10-02 08:06] LABS: WHITE BLOOD COUNT 6.2 Th/cmm (4.8-10.8)
[2016-10-02] MEDS: Silver Antimicrobial Wound Gel 0.25 oz Tube TP SCH (09:04)
--- NOTE | 2016-10-02 12:23 | Internal Medicine Prog Note ---
Internal Medicine Subjective - Subjective Patient seen and examined:: with staff, chart reviewed Patient is:: awake, verbal, interactive Per staff patient is:: no adverse event, no episodes of fall, eating well Internal Medicine Objective - Results Result Diagrams: 10/02/16 06:33 10/02/16 06:33 Recent Labs: Laboratory Last Values WBC 6.2 Th/cmm (4.8-10.8) D 10/02/16 06:33 RBC 4.09 Mil/cmm (4.30-5.70) L 10/02/16 06:33 Hgb 12.2 gm/dL (13.2-17.3) L 10/02/16 06:33 Hct 36.1 % (39.0-49.0) L 10/02/16 06:33 MCV 88.2 fl (80-99) 10/02/16 06:33 MCH 29.9 pg (26.0-30.0) 10/02/16 06:33 MCHC Differential 33.9 pg (28.0-36.0) 10/02/16 06:33 RDW 13.2 % (11.5-20.0) 10/02/16 06:33 Plt Count 277 Th/cmm (150-400) 10/02/16 06:33 MPV 6.0 fl 10/02/16 06:33 Neutrophils % 68.4 % (40.0-80.0) 10/02/16 06:33 Lymphocytes % 19.3 % (20.0-50.0) L 10/02/16 06:33 Monocytes % 8.0 % (2.0-10.0) 10/02/16 06:33 Eosinophils % 3.9 % (0.0-5.0) 10/02/16 06:33 Basophils % 0.4 % (0.0-2.0) 10/02/16 06:33 PT 10.4 SECONDS (9.5-11.5) 09/28/16 21:35 INR 1.00 (0.5-1.4) 09/28/16 21:35 PTT (Actin FS) 25.7 SECONDS (26.0-38.0) L 09/28/16 21:35 Sodium 135 mEq/L (136-145) L 10/02/16 06:33 Potassium 4.3 mEq/L (3.5-5.1) 10/02/16 06:33 Chloride 104 mEq/L (98-107) 10/02/16 06:33 Carbon Dioxide 27.9 mEq/L (21.0-31.0) 10/02/16 06:33 Anion Gap 7.4 (7.0-16.0) 10/02/16 06:33 BUN 16 mg/dL (7-25) 10/02/16 06:33 Creatinine 1.3 mg/dL (0.7-1.3) 10/02/16 06:33 Est GFR ( Amer) > 60.0 ml/min (>90) 10/02/16 06:33 Est GFR (Non-Af Amer) > 60.0 ml/min 10/02/16 06:33 BUN/Creatinine Ratio 12.3 10/02/16 06:33 Glucose 94 mg/dL (70-105) 10/02/16 06:33 Whole Bld Lactic Acid 1.95 mmol/L (0.60-1.99) 09/28/16 21:35 Calcium 9.0 mg/dL (8.6-10.3) 10/02/16 06:33 Total Bilirubin 0.4 mg/dL (0.3-1.0) 09/30/16 05:55 AST 14 U/L (13-39) 09/30/16 05:55 ALT 11 U/L (7-52) 09/30/16 05:55 Alkaline Phosphatase 59 U/L (34-104) 09/30/16 05:55 Creatine Kinase 72 U/L (30-223) 09/28/16 21:35 Troponin I < 0.01 ng/mL (0.01-0.05) L 09/28/16 21:35 Total Protein 6.8 gm/dL (6.0-8.3) 09/30/16 05:55 Albumin 3.3 gm/dL (4.2-5.5) L 09/30/16 05:55 Globulin 3.5 gm/dL 09/30/16 05:55 Albumin/Globulin Ratio 0.9 (1.0-1.8) L 09/30/16 05:55 Vancomycin Trough 11.9 ug/mL (10-20) 09/30/16 09:10 - Physical Exam Vitals and I&O: Vital Signs Temp 98.8 F 10/02/16 08:15 Pulse 81 10/02/16 09:04 Resp 20 10/02/16 08:15 BP 123/75 10/02/16 09:04 Pulse Ox 96 10/02/16 08:15 Intake & Output 10/01/16 10/02/16 10/02/16 18:59 06:59 18:59 Intake Total 450 1750 100 Output Total 500 Balance 450 1250 100 Intake: Intake, IV Amount 450 1450 100 D5-0.45NS 1,000 ml @ 70 1000 mls/hr IV .[id number] [facility] Rx #:[id number] Piperacillin Sodium/ 200 200 100 Tazobact 4.5 gm In Sodium Chloride 0.9% 100 ml @ 100 mls/hr IV Q6HR [facility] Rx #:[id number] Vancomycin HCl 1 gm In 250 250 Sodium Chloride 0.9% 250 ml @ 165 mls/hr IV Q12H [facility] Rx#:[id number] Oral 300 Output: Urine 500 Other: # Bowel Movements 0 Active Medications: Current Medications Piperacillin Sod/Tazobactam (Sod 4.5 gm/ Sodium Chloride) 100 mls @ 100 mls/hr IV Q6HR [facility] Stop: 11/28/16 05:59 Last Admin: 10/02/16 11:16 Dose: 100 mls/hr Vancomycin HCl 1 gm/ Sodium (Chloride) 250 mls @ 165 mls/hr IV Q12H [facility] Stop: 11/28/16 09:59 Last Admin: 10/02/16 09:15 Dose: 125 mls/hr Dextrose/Sodium Chloride (D5-0.45ns) 1,000 mls @ 70 mls/hr IV .[id number] [facility] Stop: 11/29/16 16:12 Last Admin: 10/02/16 11:17 Dose: 70 mls/hr Lisinopril (Zestril) 10 mg PO DAILY [facility] Stop: 11/29/16 08:59 Last Admin: 10/02/16 09:04 Dose: 10 mg Miscellaneous (Vancomycin Iv Per Pharmacy) 1 ea [facility] PRN PRN PRN Reason: PROTOCOL Stop: 11/28/16 01:46 Morphine Sulfate (Morphine) 2 mg IVP Q3HR PRN PRN Reason: Pain (Severe) Stop: 11/28/16 01:46 Last Admin: 10/01/16 22:07 Dose: 2 mg Ondansetron HCl (Zofran) 4 mg IV Q6H PRN PRN Reason: Nausea / Vomiting Stop: 11/28/16 01:46 Tamsulosin HCl (Flomax) 0.4 mg PO DAILY [facility] Stop: 11/29/16 08:59 Last Admin: 10/02/16 09:04 Dose: 0.4 mg Wound Care/Dressing Products (Silvasorb) 1 appl TP DAILY [facility] Stop: 11/28/16 12:59 Last Admin: 10/02/16 09:04 Dose: 1 appl General: alert HEENT: NC/AT, PERRLA Neck: Supple, other (wound r neck) Lungs: congested Cardiovascular: RRR, Normal S1, Normal S2 Abdomen: soft non-tender, globular Extremities: excoriation Neurological: no change Internal Medicine Assmt/Plan - Assessment Assessment: r mandible cellulitis htn bph djd ch pain syndrome - Plan Plan: cont on iv abx wound care id follow up pain control ramos rn Nutritional Asmnt/Malnutr-PDOC - Dietary Evaluation Malnutrition Findings (Please click <Entered> for more info): Nutritional Asmnt/Malnutrition Start: 10/01/16 17: 49 Text: Status: Complete Freq: Document 10/01/16 17:49 GSUN (Rec: 10/01/16 18:04 GSUN [email or web address]) Nutritional Asmnt/Malnutrition Patient General Information Nutritional Screening Consult Diagnosis Right mandible with possible osteomyelitis and cellulitis Pertinent Medical Hx/Surgical Hx HTN, BPH, DJD, 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 RD consult for right anterior lateral neck submandibular abscess. Pt was sitting upright in bed, alert and pleasant. Observed pt finished 100% of lunch, avg PO intake 100% since adm, meeting nutritional needs. Pt stated pureed meal appears too little for him, RD ensured pt meal provides enough to meet pt's nutritional needs. Discussed texture with pt, pt wants to continue with current diet, no difficulties eating/swalloing , just pain, stated no nutritional concerns at this time. Pt appears nourished, no significant muscle/fat wasting or weight loss noted. Current Diet Order/ Nutrition Support Pureed Pertinent Medications D5, Vancomycin, Morphine, Zofran, Vancomycin Pertinent Labs Reviewed. Nutritional Hx/Data Height 1.73 m Height (Calculated Centimeters) 172.7 Current Weight (lbs) 81.647 kg Weight (Calculated Kilograms) 81.6 Weight (Calculated Grams) 66256.6 Usual body Weight (lbs) 180 [place] Body Weight 154lb Recent Weight Change No Weight Status Overweight GI Symptoms Food Allergies No Cultural/Ethnic/Druze Belief Unknown. Usual diet at home Unknown. Skin Integrity/Comment: [place] 20. Abscess/open wound to right jaw, otherwise skin intact. Current %PO Good (75-100%) Estimated Nutritional Goals Calories/Kcals/Kg IBW 154lb/70kg Kcals Calculated 1750-2100kcal (25-30kcal/kg) Protein g/kg: IBW Protein Calculated 70g (1g/kg) Fluid: ml 1750-2100ml (1ml/kcal) Nutritional Problem 1. Problem Problem No nutritional problems at this time. Intervention/Recommendation Comments 1. Continue with pureed diet. Avg PO intake is adequate. 2. Monitor weight. Expected Outcomes/Goals Expected Outcomes/Goals 1. PO intake continue to meet 100% of estimated nutritional needs.
[2016-10-02] MEDS: Morphine Sulfate 2 mg/mL 1mL Syr IVP PRN ×2 (14:49→21:09)
[2016-10-03] MEDS: Morphine Sulfate 2 mg/mL 1mL Syr IVP PRN ×4 (05:20→22:37)
[2016-10-03 07:01] LABS: % BASOPHILS 0.4 % (0.0-2.0); % EOSINOPHILS 4.6 % (0.0-5.0); % LYMPHOCYTES 20.1 % (20.0-50.0); % MONOCYTES 10.3 % (2.0-10.0); % NEUTROPHILS 64.6 % (40.0-80.0); HEMOGLOBIN 11.8 gm/dL (13.2-17.3); MEAN CELL VOLUME 88.7 fl (80-99); MEAN CORPUSCULAR HEMOGLOBIN 29.8 pg (26.0-30.0); MEAN CORPUSCULAR HGB CONC 33.6 pg (28.0-36.0); NEUTROPHILE ABSOLUTE 4.1 Th/cmm (1.8-8.0); PLATELET COUNT 286 Th/cmm (150-400); RED BLOOD COUNT 3.95 Mil/cmm (4.30-5.70); RED CELL DISTRIBUTION WIDTH 13.4 % (11.5-20.0); WHITE BLOOD COUNT 6.3 Th/cmm (4.8-10.8)
[2016-10-03 07:22] LABS: ANION GAP 6.9 (7.0-16.0); BUN - UREA NITROGEN 18 mg/dL (7-25); CALCIUM SERUM 8.9 mg/dL (8.6-10.3); CARBON DIOXIDE 27.4 mEq/L (21.0-31.0); CHLORIDE 106 mEq/L (98-107); CREATININE - SERUM 1.2 mg/dL (0.7-1.3); GLUCOSE 100 mg/dL (70-105); POTASSIUM SERUM 4.3 mEq/L (3.5-5.1); SODIUM SERUM 136 mEq/L (136-145)
[2016-10-03] MEDS: Silver Antimicrobial Wound Gel 0.25 oz Tube TP SCH (09:00)
--- NOTE | 2016-10-03 15:17 | Internal Medicine Prog Note ---
Internal Medicine Subjective - Subjective Patient seen and examined:: with staff, chart reviewed Patient is:: awake, verbal, interactive Patient Complaints of:: congestion Per staff patient is:: no adverse event, noncompliant Internal Medicine Objective - Results Result Diagrams: 10/03/16 06:26 10/03/16 06:26 Recent Labs: Laboratory Last Values WBC 6.3 Th/cmm (4.8-10.8) 10/03/16 06:26 RBC 3.95 Mil/cmm (4.30-5.70) L 10/03/16 06:26 Hgb 11.8 gm/dL (13.2-17.3) L 10/03/16 06:26 Hct 35.0 % (39.0-49.0) L 10/03/16 06:26 MCV 88.7 fl (80-99) 10/03/16 06:26 MCH 29.8 pg (26.0-30.0) 10/03/16 06:26 MCHC Differential 33.6 pg (28.0-36.0) 10/03/16 06:26 RDW 13.4 % (11.5-20.0) 10/03/16 06:26 Plt Count 286 Th/cmm (150-400) 10/03/16 06:26 MPV 6.0 fl 10/03/16 06:26 Neutrophils % 64.6 % (40.0-80.0) 10/03/16 06:26 Lymphocytes % 20.1 % (20.0-50.0) 10/03/16 06:26 Monocytes % 10.3 % (2.0-10.0) H 10/03/16 06:26 Eosinophils % 4.6 % (0.0-5.0) 10/03/16 06:26 Basophils % 0.4 % (0.0-2.0) 10/03/16 06:26 ESR 36 mm/hr (0-20) H 10/03/16 06:26 PT 10.4 SECONDS (9.5-11.5) 09/28/16 21:35 INR 1.00 (0.5-1.4) 09/28/16 21:35 PTT (Actin FS) 25.7 SECONDS (26.0-38.0) L 09/28/16 21:35 Sodium 136 mEq/L (136-145) 10/03/16 06:26 Potassium 4.3 mEq/L (3.5-5.1) 10/03/16 06:26 Chloride 106 mEq/L (98-107) 10/03/16 06:26 Carbon Dioxide 27.4 mEq/L (21.0-31.0) 10/03/16 06:26 Anion Gap 6.9 (7.0-16.0) L 10/03/16 06:26 BUN 18 mg/dL (7-25) 10/03/16 06:26 Creatinine 1.2 mg/dL (0.7-1.3) 10/03/16 06:26 Est GFR ( Amer) > 60.0 ml/min (>90) 10/03/16 06:26 Est GFR (Non-Af Amer) > 60.0 ml/min 10/03/16 06:26 BUN/Creatinine Ratio 15.0 10/03/16 06:26 Glucose 100 mg/dL (70-105) 10/03/16 06:26 Whole Bld Lactic Acid 1.95 mmol/L (0.60-1.99) 09/28/16 21:35 Calcium 8.9 mg/dL (8.6-10.3) 10/03/16 06:26 Total Bilirubin 0.4 mg/dL (0.3-1.0) 09/30/16 05:55 AST 14 U/L (13-39) 09/30/16 05:55 ALT 11 U/L (7-52) 09/30/16 05:55 Alkaline Phosphatase 59 U/L (34-104) 09/30/16 05:55 Creatine Kinase 72 U/L (30-223) 09/28/16 21:35 Troponin I < 0.01 ng/mL (0.01-0.05) L 09/28/16 21:35 Total Protein 6.8 gm/dL (6.0-8.3) 09/30/16 05:55 Albumin 3.3 gm/dL (4.2-5.5) L 09/30/16 05:55 Globulin 3.5 gm/dL 09/30/16 05:55 Albumin/Globulin Ratio 0.9 (1.0-1.8) L 09/30/16 05:55 Vancomycin Trough 11.9 ug/mL (10-20) 09/30/16 09:10 - Physical Exam Vitals and I&O: Vital Signs Temp 98.1 F 10/03/16 12:00 Pulse 72 10/03/16 12:00 Resp 18 10/03/16 12:00 BP 113/78 10/03/16 12:00 Pulse Ox 97 10/03/16 12:00 Intake & Output 10/02/16 10/03/16 10/03/16 18:59 06:59 18:59 Intake Total 550 750 350 Balance 550 750 350 Intake: Intake, IV Amount 550 450 350 Piperacillin Sodium/ 300 200 100 Tazobact 4.5 gm In Sodium Chloride 0.9% 100 ml @ 100 mls/hr IV Q6HR [facility] Rx #:[id number] Vancomycin HCl 1 gm In 250 250 250 Sodium Chloride 0.9% 250 ml @ 165 mls/hr IV Q12H [facility] Rx#:[id number] Oral 300 Other: # Voids 3 Active Medications: Current Medications Piperacillin Sod/Tazobactam (Sod 4.5 gm/ Sodium Chloride) 100 mls @ 100 mls/hr IV Q6HR [facility] Stop: 11/28/16 05:59 Last Infusion: 10/03/16 13:15 Dose: Infused Vancomycin HCl 1 gm/ Sodium (Chloride) 250 mls @ 165 mls/hr IV Q12H [facility] Stop: 11/28/16 09:59 Last Infusion: 10/03/16 11:55 Dose: Infused Dextrose/Sodium Chloride (D5-0.45ns) 1,000 mls @ 70 mls/hr IV .[id number] [facility] Stop: 11/29/16 16:12 Last Admin: 10/02/16 11:17 Dose: 70 mls/hr Ibuprofen (Motrin) 800 mg PO TID [facility] Stop: 12/02/16 20:59 Lisinopril (Zestril) 10 mg PO DAILY [facility] Stop: 11/29/16 08:59 Last Admin: 10/03/16 08:59 Dose: 10 mg Miscellaneous (Vancomycin Iv Per Pharmacy) 1 ea MC PRN PRN PRN Reason: PROTOCOL Stop: 11/28/16 01:46 Morphine Sulfate (Morphine) 2 mg IVP Q3HR PRN PRN Reason: Pain (Severe) Stop: 11/28/16 01:46 Last Admin: 10/03/16 14:56 Dose: 2 mg Ondansetron HCl (Zofran) 4 mg IV Q6H PRN PRN Reason: Nausea / Vomiting Stop: 11/28/16 01:46 Tamsulosin HCl (Flomax) 0.4 mg PO DAILY [facility] Stop: 11/29/16 08:59 Last Admin: 10/03/16 09:00 Dose: 0.4 mg Wound Care/Dressing Products (Silvasorb) 1 appl TP DAILY [facility] Stop: 11/28/16 12:59 Last Admin: 10/03/16 09:00 Dose: 1 appl General: alert HEENT: NC/AT, PERRLA, EOMI Neck: Supple, No JVD Lungs: congested, rales Cardiovascular: RRR, Normal S1, Normal S2 Abdomen: soft non-tender, globular, positive bowel sound Extremities: excoriation (neck wound) Internal Medicine Assmt/Plan - Assessment Assessment: r mandible cellulitis htn bph djd ch pain syndrome - Plan Plan: cont on iv abx wound care id follow up pain control ramos rn Nutritional Asmnt/Malnutr-PDOC - Dietary Evaluation Malnutrition Findings (Please click <Entered> for more info): Nutritional Asmnt/Malnutrition Start: 10/01/16 17: 49 Text: Status: Complete Freq: Document 10/01/16 17:49 GSUN (Rec: 10/01/16 18:04 GSUN [email or web address]) Nutritional Asmnt/Malnutrition Patient General Information Nutritional Screening Consult Diagnosis Right mandible with possible osteomyelitis and cellulitis Pertinent Medical Hx/Surgical Hx HTN, BPH, DJD, 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 RD consult for right anterior lateral neck submandibular abscess. Pt was sitting upright in bed, alert and pleasant. Observed pt finished 100% of lunch, avg PO intake 100% since adm, meeting nutritional needs. Pt stated pureed meal appears too little for him, RD ensured pt meal provides enough to meet pt's nutritional needs. Discussed texture with pt, pt wants to continue with current diet, no difficulties eating/swalloing , just pain, stated no nutritional concerns at this time. Pt appears nourished, no significant muscle/fat wasting or weight loss noted. Current Diet Order/ Nutrition Support Pureed Pertinent Medications D5, Vancomycin, Morphine, Zofran, Vancomycin Pertinent Labs Reviewed. Nutritional Hx/Data Height 1.73 m Height (Calculated Centimeters) 172.7 Current Weight (lbs) 81.647 kg Weight (Calculated Kilograms) 81.6 Weight (Calculated Grams) 04903.6 Usual body Weight (lbs) 180 [place] Body Weight 154lb Recent Weight Change No Weight Status Overweight GI Symptoms Food Allergies No Cultural/Ethnic/Shinto Belief Unknown. Usual diet at home Unknown. Skin Integrity/Comment: Norman 20. Abscess/open wound to right jaw, otherwise skin intact. Current %PO Good (75-100%) Estimated Nutritional Goals Calories/Kcals/Kg IBW 154lb/70kg Kcals Calculated 1750-2100kcal (25-30kcal/kg) Protein g/kg: IBW Protein Calculated 70g (1g/kg) Fluid: ml 1750-2100ml (1ml/kcal) Nutritional Problem 1. Problem Problem No nutritional problems at this time. Intervention/Recommendation Comments 1. Continue with pureed diet. Avg PO intake is adequate. 2. Monitor weight. Expected Outcomes/Goals Expected Outcomes/Goals 1. PO intake continue to meet 100% of estimated nutritional needs.
[2016-10-03] MEDS: D5-0.45NS 1,000 ML IV SCH (21:03)
[2016-10-04] MEDS: Silver Antimicrobial Wound Gel 0.25 oz Tube TP SCH (08:51)
[2016-10-04] MEDS: Pantoprazole 40 mg EC Tab PO SCH (10:23)
--- NOTE | 2016-10-04 12:22 | Infectious Disease Prog Note ---
Infectious Disease Subjective - Review of Systems Service Date: 10/04/16 Subjective: No change. Infectious Disease Objective - Results Result Diagrams: 10/03/16 06:26 10/03/16 06:26 Recent Labs: Laboratory Last Values WBC 6.3 Th/cmm (4.8-10.8) 10/03/16 06:26 RBC 3.95 Mil/cmm (4.30-5.70) L 10/03/16 06:26 Hgb 11.8 gm/dL (13.2-17.3) L 10/03/16 06:26 Hct 35.0 % (39.0-49.0) L 10/03/16 06:26 MCV 88.7 fl (80-99) 10/03/16 06:26 MCH 29.8 pg (26.0-30.0) 10/03/16 06:26 MCHC Differential 33.6 pg (28.0-36.0) 10/03/16 06:26 RDW 13.4 % (11.5-20.0) 10/03/16 06:26 Plt Count 286 Th/cmm (150-400) 10/03/16 06:26 MPV 6.0 fl 10/03/16 06:26 Neutrophils % 64.6 % (40.0-80.0) 10/03/16 06:26 Lymphocytes % 20.1 % (20.0-50.0) 10/03/16 06:26 Monocytes % 10.3 % (2.0-10.0) H 10/03/16 06:26 Eosinophils % 4.6 % (0.0-5.0) 10/03/16 06:26 Basophils % 0.4 % (0.0-2.0) 10/03/16 06:26 ESR 36 mm/hr (0-20) H 10/03/16 06:26 PT 10.4 SECONDS (9.5-11.5) 09/28/16 21:35 INR 1.00 (0.5-1.4) 09/28/16 21:35 PTT (Actin FS) 25.7 SECONDS (26.0-38.0) L 09/28/16 21:35 Sodium 136 mEq/L (136-145) 10/03/16 06:26 Potassium 4.3 mEq/L (3.5-5.1) 10/03/16 06:26 Chloride 106 mEq/L (98-107) 10/03/16 06:26 Carbon Dioxide 27.4 mEq/L (21.0-31.0) 10/03/16 06:26 Anion Gap 6.9 (7.0-16.0) L 10/03/16 06:26 BUN 18 mg/dL (7-25) 10/03/16 06:26 Creatinine 1.2 mg/dL (0.7-1.3) 10/03/16 06:26 Est GFR ( Amer) > 60.0 ml/min (>90) 10/03/16 06:26 Est GFR (Non-Af Amer) > 60.0 ml/min 10/03/16 06:26 BUN/Creatinine Ratio 15.0 10/03/16 06:26 Glucose 100 mg/dL (70-105) 10/03/16 06:26 Whole Bld Lactic Acid 1.95 mmol/L (0.60-1.99) 09/28/16 21:35 Calcium 8.9 mg/dL (8.6-10.3) 10/03/16 06:26 Total Bilirubin 0.4 mg/dL (0.3-1.0) 09/30/16 05:55 AST 14 U/L (13-39) 09/30/16 05:55 ALT 11 U/L (7-52) 09/30/16 05:55 Alkaline Phosphatase 59 U/L (34-104) 09/30/16 05:55 Creatine Kinase 72 U/L (30-223) 09/28/16 21:35 Troponin I < 0.01 ng/mL (0.01-0.05) L 09/28/16 21:35 Total Protein 6.8 gm/dL (6.0-8.3) 09/30/16 05:55 Albumin 3.3 gm/dL (4.2-5.5) L 09/30/16 05:55 Globulin 3.5 gm/dL 09/30/16 05:55 Albumin/Globulin Ratio 0.9 (1.0-1.8) L 09/30/16 05:55 Vancomycin Trough 11.9 ug/mL (10-20) 09/30/16 09:10 - Physical Exam Vitals and I&O: Vital Signs Temp 98.7 F 10/04/16 08:00 Pulse 54 10/04/16 08:52 Resp 18 10/04/16 08:00 BP 120/87 10/04/16 08:52 Pulse Ox 94 10/04/16 08:00 Intake & Output 10/03/16 10/04/16 10/04/16 18:59 06:59 18:59 Intake Total 450 650 Balance 450 650 Intake: Intake, IV Amount 450 450 Piperacillin Sodium/ 200 200 Tazobact 4.5 gm In Sodium Chloride 0.9% 100 ml @ 100 mls/hr IV Q6HR [facility] Rx #:[id number] Vancomycin HCl 1 gm In 250 250 Sodium Chloride 0.9% 250 ml @ 165 mls/hr IV Q12H [facility] Rx#:[id number] Oral 200 Other: # Voids 2 Active Medications: Current Medications Piperacillin Sod/Tazobactam (Sod 4.5 gm/ Sodium Chloride) 100 mls @ 100 mls/hr IV Q6HR [facility] Stop: 11/28/16 05:59 Last Admin: 10/04/16 11:59 Dose: 100 mls/hr Vancomycin HCl 1 gm/ Sodium (Chloride) 250 mls @ 165 mls/hr IV Q12H [facility] Stop: 11/28/16 09:59 Last Admin: 10/04/16 10:22 Dose: 165 mls/hr Dextrose/Sodium Chloride (D5-0.45ns) 1,000 mls @ 70 mls/hr IV .[id number] [facility] Stop: 11/29/16 16:12 Last Admin: 10/03/16 21:03 Dose: 70 mls/hr Lisinopril (Zestril) 10 mg PO DAILY [facility] Stop: 11/29/16 08:59 Last Admin: 10/04/16 08:52 Dose: 10 mg Miscellaneous (Vancomycin Iv Per Pharmacy) 1 ea MC PRN PRN PRN Reason: PROTOCOL Stop: 11/28/16 01:46 Morphine Sulfate (Morphine) 2 mg IVP Q3HR PRN PRN Reason: Pain (Severe) Stop: 11/28/16 01:46 Last Admin: 10/03/16 22:37 Dose: 2 mg Naproxen (Naprosyn) 500 mg PO BIDWM [facility] Stop: 12/03/16 17:59 Ondansetron HCl (Zofran) 4 mg IV Q6H PRN PRN Reason: Nausea / Vomiting Stop: 11/28/16 01:46 Pantoprazole Sodium (Protonix) 40 mg PO DAILY [facility] Stop: 12/03/16 08:59 Last Admin: 10/04/16 10:23 Dose: 40 mg Tamsulosin HCl (Flomax) 0.4 mg PO DAILY [facility] Stop: 11/29/16 08:59 Last Admin: 10/04/16 08:53 Dose: 0.4 mg Wound Care/Dressing Products (Silvasorb) 1 appl TP DAILY [facility] Stop: 11/28/16 12:59 Last Admin: 10/04/16 08:51 Dose: 1 appl General: no acute distress, well developed, well nourished HEENT: atraumatic, normocephalic, PERRLA, EOMI, moist mucous membrane, other ( No change in the facial wound and swelling.) Neck: supple, no thyromegaly, no lymphadenopathy Cardiovascular: S1S2, regular Lungs: clear to auscultation bilaterally, clear to percussion Abdomen: soft, no tender, no distended Extremities: no cyanosis, no clubbing, no edema Neurological: awake, alert, oriented Skin: intact Infectious Disease Assmt/Plan - Problem List Patient Problems: All Active Problems PALPAIT (Acute) Palpitation (Acute 02/23/14) R00.2 - Assessment Assessment: Impression: 1. 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 wound culture grew MRSA. 2. Osteonecrosis of the right sided jaw. - Plan Plan: Continue same antibiotics : vanco and dc zosyn. Patient is waiting for transfer to higher level of care. 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 RD consult for right anterior lateral neck submandibular abscess. Pt was sitting upright in bed, alert and pleasant. Observed pt finished 100% of lunch, avg PO intake 100% since adm, meeting nutritional needs. Pt stated pureed meal appears too little for him, RD ensured pt meal provides enough to meet pt's nutritional needs. Discussed texture with pt, pt wants to continue with current diet, no difficulties eating/swalloing , just pain, stated no nutritional concerns at this time. Pt appears nourished, no significant muscle/fat wasting or weight loss noted. Current Diet Order/ Nutrition Support Pureed Pertinent Medications D5, Vancomycin, Morphine, Zofran, Vancomycin Pertinent Labs Reviewed. Nutritional Hx/Data Height 1.73 m Height (Calculated Centimeters) 172.7 Current Weight (lbs) 81.647 kg Weight (Calculated Kilograms) 81.6 Weight (Calculated Grams) 08377.6 Usual body Weight (lbs) 180 [place] Body Weight 154lb Recent Weight Change No Weight Status Overweight GI Symptoms Food Allergies No Cultural/Ethnic/Yazdanism Belief Unknown. Usual diet at home Unknown. Skin Integrity/Comment: Norman 20. Abscess/open wound to right jaw, otherwise skin intact. Current %PO Good (75-100%) Estimated Nutritional Goals Calories/Kcals/Kg IBW 154lb/70kg Kcals Calculated 1750-2100kcal (25-30kcal/kg) Protein g/kg: IBW Protein Calculated 70g (1g/kg) Fluid: ml 1750-2100ml (1ml/kcal) Nutritional Problem 1. Problem Problem No nutritional problems at this time. Intervention/Recommendation Comments 1. Continue with pureed diet. Avg PO intake is adequate. 2. Monitor weight. Expected Outcomes/Goals Expected Outcomes/Goals 1. PO intake continue to meet 100% of estimated nutritional needs.
--- NOTE | 2016-10-04 12:40 | Internal Medicine Prog Note ---
Internal Medicine Subjective - Subjective Service Date: 10/04/16 Patient seen and examined:: with staff Patient is:: awake Per staff patient is:: other (pain) Internal Medicine Objective - Results Result Diagrams: 10/03/16 06:26 10/03/16 06:26 Recent Labs: Laboratory Last Values WBC 6.3 Th/cmm (4.8-10.8) 10/03/16 06:26 RBC 3.95 Mil/cmm (4.30-5.70) L 10/03/16 06:26 Hgb 11.8 gm/dL (13.2-17.3) L 10/03/16 06:26 Hct 35.0 % (39.0-49.0) L 10/03/16 06:26 MCV 88.7 fl (80-99) 10/03/16 06:26 MCH 29.8 pg (26.0-30.0) 10/03/16 06:26 MCHC Differential 33.6 pg (28.0-36.0) 10/03/16 06:26 RDW 13.4 % (11.5-20.0) 10/03/16 06:26 Plt Count 286 Th/cmm (150-400) 10/03/16 06:26 MPV 6.0 fl 10/03/16 06:26 Neutrophils % 64.6 % (40.0-80.0) 10/03/16 06:26 Lymphocytes % 20.1 % (20.0-50.0) 10/03/16 06:26 Monocytes % 10.3 % (2.0-10.0) H 10/03/16 06:26 Eosinophils % 4.6 % (0.0-5.0) 10/03/16 06:26 Basophils % 0.4 % (0.0-2.0) 10/03/16 06:26 ESR 36 mm/hr (0-20) H 10/03/16 06:26 PT 10.4 SECONDS (9.5-11.5) 09/28/16 21:35 INR 1.00 (0.5-1.4) 09/28/16 21:35 PTT (Actin FS) 25.7 SECONDS (26.0-38.0) L 09/28/16 21:35 Sodium 136 mEq/L (136-145) 10/03/16 06:26 Potassium 4.3 mEq/L (3.5-5.1) 10/03/16 06:26 Chloride 106 mEq/L (98-107) 10/03/16 06:26 Carbon Dioxide 27.4 mEq/L (21.0-31.0) 10/03/16 06:26 Anion Gap 6.9 (7.0-16.0) L 10/03/16 06:26 BUN 18 mg/dL (7-25) 10/03/16 06:26 Creatinine 1.2 mg/dL (0.7-1.3) 10/03/16 06:26 Est GFR ( Amer) > 60.0 ml/min (>90) 10/03/16 06:26 Est GFR (Non-Af Amer) > 60.0 ml/min 10/03/16 06:26 BUN/Creatinine Ratio 15.0 10/03/16 06:26 Glucose 100 mg/dL (70-105) 10/03/16 06:26 Whole Bld Lactic Acid 1.95 mmol/L (0.60-1.99) 09/28/16 21:35 Calcium 8.9 mg/dL (8.6-10.3) 10/03/16 06:26 Total Bilirubin 0.4 mg/dL (0.3-1.0) 09/30/16 05:55 AST 14 U/L (13-39) 09/30/16 05:55 ALT 11 U/L (7-52) 09/30/16 05:55 Alkaline Phosphatase 59 U/L (34-104) 09/30/16 05:55 Creatine Kinase 72 U/L (30-223) 09/28/16 21:35 Troponin I < 0.01 ng/mL (0.01-0.05) L 09/28/16 21:35 Total Protein 6.8 gm/dL (6.0-8.3) 09/30/16 05:55 Albumin 3.3 gm/dL (4.2-5.5) L 09/30/16 05:55 Globulin 3.5 gm/dL 09/30/16 05:55 Albumin/Globulin Ratio 0.9 (1.0-1.8) L 09/30/16 05:55 Vancomycin Trough 11.9 ug/mL (10-20) 09/30/16 09:10 - Physical Exam Vitals and I&O: Vital Signs Temp 98.7 F 10/04/16 08:00 Pulse 54 10/04/16 08:52 Resp 18 10/04/16 08:00 BP 120/87 10/04/16 08:52 Pulse Ox 94 10/04/16 08:00 Intake & Output 10/03/16 10/04/16 10/04/16 18:59 06:59 18:59 Intake Total 450 650 Balance 450 650 Intake: Intake, IV Amount 450 450 Piperacillin Sodium/ 200 200 Tazobact 4.5 gm In Sodium Chloride 0.9% 100 ml @ 100 mls/hr IV Q6HR [facility] Rx #:[id number] Vancomycin HCl 1 gm In 250 250 Sodium Chloride 0.9% 250 ml @ 165 mls/hr IV Q12H [facility] Rx#:[id number] Oral 200 Other: # Voids 2 Active Medications: Current Medications Vancomycin HCl 1 gm/ Sodium (Chloride) 250 mls @ 165 mls/hr IV Q12H [facility] Stop: 11/28/16 09:59 Last Admin: 10/04/16 10:22 Dose: 165 mls/hr Dextrose/Sodium Chloride (D5-0.45ns) 1,000 mls @ 70 mls/hr IV .[id number] [facility] Stop: 11/29/16 16:12 Last Admin: 10/03/16 21:03 Dose: 70 mls/hr Lisinopril (Zestril) 10 mg PO DAILY [facility] Stop: 11/29/16 08:59 Last Admin: 10/04/16 08:52 Dose: 10 mg Miscellaneous (Vancomycin Iv Per Pharmacy) 1 ea MC PRN PRN PRN Reason: PROTOCOL Stop: 11/28/16 01:46 Morphine Sulfate (Morphine) 2 mg IVP Q3HR PRN PRN Reason: Pain (Severe) Stop: 11/28/16 01:46 Last Admin: 10/03/16 22:37 Dose: 2 mg Naproxen (Naprosyn) 500 mg PO BIDWM [facility] Stop: 12/03/16 17:59 Ondansetron HCl (Zofran) 4 mg IV Q6H PRN PRN Reason: Nausea / Vomiting Stop: 11/28/16 01:46 Pantoprazole Sodium (Protonix) 40 mg PO DAILY [facility] Stop: 12/03/16 08:59 Last Admin: 10/04/16 10:23 Dose: 40 mg Tamsulosin HCl (Flomax) 0.4 mg PO DAILY [facility] Stop: 11/29/16 08:59 Last Admin: 10/04/16 08:53 Dose: 0.4 mg Wound Care/Dressing Products (Silvasorb) 1 appl TP DAILY [facility] Stop: 11/28/16 12:59 Last Admin: 10/04/16 08:51 Dose: 1 appl General: alert HEENT: NC/AT, PERRLA Neck: Supple Lungs: CTAB Cardiovascular: RRR, Normal S1, Normal S2, without murmur Abdomen: soft non-tender, non-distended, positive bowel sound Internal Medicine Assmt/Plan - Assessment Assessment: r mandible cellulitis htn bph djd ch pain syndrome - Plan Plan: CONTINUE IVABX as per id PAIN MGMT F/U LABS Nutritional Asmnt/Malnutr-PDOC - Dietary Evaluation Malnutrition Findings (Please click <Entered> for more info): Nutritional Asmnt/Malnutrition Start: 10/01/16 17: 49 Text: Status: Complete Freq: Document 10/01/16 17:49 GSUN (Rec: 10/01/16 18:04 GSUN [email or web address]) Nutritional Asmnt/Malnutrition Patient General Information Nutritional Screening Consult Diagnosis Right mandible with possible osteomyelitis and cellulitis Pertinent Medical Hx/Surgical Hx HTN, BPH, DJD, 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 RD consult for right anterior lateral neck submandibular abscess. Pt was sitting upright in bed, alert and pleasant. Observed pt finished 100% of lunch, avg PO intake 100% since adm, meeting nutritional needs. Pt stated pureed meal appears too little for him, RD ensured pt meal provides enough to meet pt's nutritional needs. Discussed texture with pt, pt wants to continue with current diet, no difficulties eating/swalloing , just pain, stated no nutritional concerns at this time. Pt appears nourished, no significant muscle/fat wasting or weight loss noted. Current Diet Order/ Nutrition Support Pureed Pertinent Medications D5, Vancomycin, Morphine, Zofran, Vancomycin Pertinent Labs Reviewed. Nutritional Hx/Data Height 5 ft 8 in Height (Calculated Centimeters) 172.7 Current Weight (lbs) 180 lb Weight (Calculated Kilograms) 81.6 Weight (Calculated Grams) 60656.6 Usual body Weight (lbs) 180 [place] Body Weight 154lb Recent Weight Change No Weight Status Overweight GI Symptoms Food Allergies No Cultural/Ethnic/Sikh Belief Unknown. Usual diet at home Unknown. Skin Integrity/Comment: Norman 20. Abscess/open wound to right jaw, otherwise skin intact. Current %PO Good (75-100%) Estimated Nutritional Goals Calories/Kcals/Kg IBW 154lb/70kg Kcals Calculated 1750-2100kcal (25-30kcal/kg) Protein g/kg: IBW Protein Calculated 70g (1g/kg) Fluid: ml 1750-2100ml (1ml/kcal) Nutritional Problem 1. Problem Problem No nutritional problems at this time. Intervention/Recommendation Comments 1. Continue with pureed diet. Avg PO intake is adequate. 2. Monitor weight. Expected Outcomes/Goals Expected Outcomes/Goals 1. PO intake continue to meet 100% of estimated nutritional needs.
[2016-10-04] MEDS: Morphine Sulfate 2 mg/mL 1mL Syr IVP PRN (19:57)
[2016-10-05 06:08] LABS: % BASOPHILS 0.8 % (0.0-2.0); % EOSINOPHILS 4.6 % (0.0-5.0); % LYMPHOCYTES 16.4 % (20.0-50.0); % MONOCYTES 7.2 % (2.0-10.0); HEMATOCRIT 37.1 % (39.0-49.0); HEMOGLOBIN 12.8 gm/dL (13.2-17.3); MEAN CELL VOLUME 86.9 fl (80-99); MEAN CORPUSCULAR HEMOGLOBIN 29.9 pg (26.0-30.0); MEAN CORPUSCULAR HGB CONC 34.4 pg (28.0-36.0); MEAN PLATELET VOLUME 5.8 fl; NEUTROPHILE ABSOLUTE 4.9 Th/cmm (1.8-8.0); PLATELET COUNT 284 Th/cmm (150-400); RED BLOOD COUNT 4.27 Mil/cmm (4.30-5.70); RED CELL DISTRIBUTION WIDTH 13.9 % (11.5-20.0); WHITE BLOOD COUNT 6.9 Th/cmm (4.8-10.8)
[2016-10-05 06:33] LABS: ALB/GLOB RATIO 0.9 (1.0-1.8); ALKALINE PHOSPHATASE 60 U/L (34-104); ANION GAP 7.4 (7.0-16.0); BILIRUBIN,TOTAL 0.3 mg/dL (0.3-1.0); BUN - UREA NITROGEN 16 mg/dL (7-25); BUN/CREATININE RATIO 14.5; CALCIUM SERUM 9.2 mg/dL (8.6-10.3); CHLORIDE 107 mEq/L (98-107); CREATININE - SERUM 1.1 mg/dL (0.7-1.3); GLUCOSE 84 mg/dL (70-105); POTASSIUM SERUM 4.4 mEq/L (3.5-5.1); SGOT 16 U/L (13-39); SGPT/ALT 10 U/L (7-52); SODIUM SERUM 137 mEq/L (136-145)
[2016-10-05] MEDS: Pantoprazole 40 mg EC Tab PO SCH (08:36)
[2016-10-05] MEDS: Silver Antimicrobial Wound Gel 0.25 oz Tube TP SCH (08:36)
--- NOTE | 2016-10-05 10:50 | Infectious Disease Prog Note ---
Infectious Disease Subjective - Review of Systems Service Date: 10/05/16 Subjective: No change. Infectious Disease Objective - Results Result Diagrams: 10/05/16 05:41 10/05/16 05:41 Recent Labs: Laboratory Last Values WBC 6.9 Th/cmm (4.8-10.8) 10/05/16 05:41 RBC 4.27 Mil/cmm (4.30-5.70) L 10/05/16 05:41 Hgb 12.8 gm/dL (13.2-17.3) L 10/05/16 05:41 Hct 37.1 % (39.0-49.0) L 10/05/16 05:41 MCV 86.9 fl (80-99) 10/05/16 05:41 MCH 29.9 pg (26.0-30.0) 10/05/16 05:41 MCHC Differential 34.4 pg (28.0-36.0) 10/05/16 05:41 RDW 13.9 % (11.5-20.0) 10/05/16 05:41 Plt Count 284 Th/cmm (150-400) 10/05/16 05:41 MPV 5.8 fl 10/05/16 05:41 Neutrophils % 71.0 % (40.0-80.0) 10/05/16 05:41 Lymphocytes % 16.4 % (20.0-50.0) L 10/05/16 05:41 Monocytes % 7.2 % (2.0-10.0) 10/05/16 05:41 Eosinophils % 4.6 % (0.0-5.0) 10/05/16 05:41 Basophils % 0.8 % (0.0-2.0) 10/05/16 05:41 ESR 36 mm/hr (0-20) H 10/03/16 06:26 PT 10.4 SECONDS (9.5-11.5) 09/28/16 21:35 INR 1.00 (0.5-1.4) 09/28/16 21:35 PTT (Actin FS) 25.7 SECONDS (26.0-38.0) L 09/28/16 21:35 Sodium 137 mEq/L (136-145) 10/05/16 05:41 Potassium 4.4 mEq/L (3.5-5.1) 10/05/16 05:41 Chloride 107 mEq/L (98-107) 10/05/16 05:41 Carbon Dioxide 27.0 mEq/L (21.0-31.0) 10/05/16 05:41 Anion Gap 7.4 (7.0-16.0) 10/05/16 05:41 BUN 16 mg/dL (7-25) 10/05/16 05:41 Creatinine 1.1 mg/dL (0.7-1.3) 10/05/16 05:41 Est GFR ( Amer) > 60.0 ml/min (>90) 10/05/16 05:41 Est GFR (Non-Af Amer) > 60.0 ml/min 10/05/16 05:41 BUN/Creatinine Ratio 14.5 10/05/16 05:41 Glucose 84 mg/dL (70-105) 10/05/16 05:41 Whole Bld Lactic Acid 1.95 mmol/L (0.60-1.99) 09/28/16 21:35 Calcium 9.2 mg/dL (8.6-10.3) 10/05/16 05:41 Total Bilirubin 0.3 mg/dL (0.3-1.0) 10/05/16 05:41 AST 16 U/L (13-39) 10/05/16 05:41 ALT 10 U/L (7-52) 10/05/16 05:41 Alkaline Phosphatase 60 U/L (34-104) 10/05/16 05:41 Creatine Kinase 72 U/L (30-223) 09/28/16 21:35 Troponin I < 0.01 ng/mL (0.01-0.05) L 09/28/16 21:35 Total Protein 7.0 gm/dL (6.0-8.3) 10/05/16 05:41 Albumin 3.4 gm/dL (4.2-5.5) L 10/05/16 05:41 Globulin 3.6 gm/dL 10/05/16 05:41 Albumin/Globulin Ratio 0.9 (1.0-1.8) L 10/05/16 05:41 Vancomycin Trough 11.9 ug/mL (10-20) 09/30/16 09:10 - Physical Exam Vitals and I&O: Vital Signs Temp 97.7 F 10/05/16 10:00 Pulse 91 10/05/16 10:00 Resp 18 10/05/16 10:00 BP 108/72 10/05/16 10:00 Pulse Ox 96 10/05/16 10:00 Intake & Output 10/04/16 10/05/16 10/05/16 18:59 06:59 18:59 Intake Total 1050 250 Balance 1050 250 Intake: Intake, IV Amount 250 250 Vancomycin HCl 1 gm In 250 250 Sodium Chloride 0.9% 250 ml @ 165 mls/hr IV Q12H [facility] Rx#:[id number] Oral 800 Other: # Voids 3 Active Medications: Current Medications Vancomycin HCl 1 gm/ Sodium (Chloride) 250 mls @ 165 mls/hr IV Q12H [facility] Stop: 11/28/16 09:59 Last Admin: 10/05/16 10:04 Dose: 165 mls/hr Dextrose/Sodium Chloride (D5-0.45ns) 1,000 mls @ 70 mls/hr IV .[id number] [facility] Stop: 11/29/16 16:12 Last Admin: 10/03/16 21:03 Dose: 70 mls/hr Lisinopril (Zestril) 10 mg PO DAILY [facility] Stop: 11/29/16 08:59 Last Admin: 10/05/16 08:36 Dose: 10 mg Miscellaneous (Vancomycin Iv Per Pharmacy) 1 ea MC PRN PRN PRN Reason: PROTOCOL Stop: 11/28/16 01:46 Morphine Sulfate (Morphine) 2 mg IVP Q3HR PRN PRN Reason: Pain (Severe) Stop: 11/28/16 01:46 Last Admin: 10/04/16 19:57 Dose: 2 mg Naproxen (Naprosyn) 500 mg PO BIDWM [facility] Stop: 12/03/16 17:59 Last Admin: 10/05/16 08:36 Dose: 500 mg Ondansetron HCl (Zofran) 4 mg IV Q6H PRN PRN Reason: Nausea / Vomiting Stop: 11/28/16 01:46 Pantoprazole Sodium (Protonix) 40 mg PO DAILY [facility] Stop: 12/03/16 08:59 Last Admin: 10/05/16 08:36 Dose: 40 mg Tamsulosin HCl (Flomax) 0.4 mg PO DAILY [facility] Stop: 11/29/16 08:59 Last Admin: 10/05/16 08:36 Dose: 0.4 mg Wound Care/Dressing Products (Silvasorb) 1 appl TP DAILY [facility] Stop: 11/28/16 12:59 Last Admin: 10/05/16 08:36 Dose: 1 appl General: no acute distress, well developed, well nourished HEENT: atraumatic, normocephalic, PERRLA, EOMI Neck: supple Cardiovascular: S1S2, regular Lungs: clear to auscultation bilaterally, clear to percussion Abdomen: soft, no tender, no distended Extremities: no cyanosis, no clubbing, no edema Neurological: awake, alert, oriented Infectious Disease Assmt/Plan - Problem List Patient Problems: All Active Problems PALPAIT (Acute) Palpitation (Acute 02/23/14) R00.2 - Assessment Assessment: Impression: 1. 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 wound culture grew MRSA. 2. Osteonecrosis of the right sided jaw. - Plan Plan: Continue same antibiotics : vanco. Patient is waiting for transfer to higher level of care. 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 RD consult for right anterior lateral neck submandibular abscess. Pt was sitting upright in bed, alert and pleasant. Observed pt finished 100% of lunch, avg PO intake 100% since adm, meeting nutritional needs. Pt stated pureed meal appears too little for him, RD ensured pt meal provides enough to meet pt's nutritional needs. Discussed texture with pt, pt wants to continue with current diet, no difficulties eating/swalloing , just pain, stated no nutritional concerns at this time. Pt appears nourished, no significant muscle/fat wasting or weight loss noted. Current Diet Order/ Nutrition Support Pureed Pertinent Medications D5, Vancomycin, Morphine, Zofran, Vancomycin Pertinent Labs Reviewed. Nutritional Hx/Data Height 1.73 m Height (Calculated Centimeters) 172.7 Current Weight (lbs) 81.647 kg Weight (Calculated Kilograms) 81.6 Weight (Calculated Grams) 48697.6 Usual body Weight (lbs) 180 [place] Body Weight 154lb Recent Weight Change No Weight Status Overweight GI Symptoms Food Allergies No Cultural/Ethnic/Yazidism Belief Unknown. Usual diet at home Unknown. Skin Integrity/Comment: Norman 20. Abscess/open wound to right jaw, otherwise skin intact. Current %PO Good (75-100%) Estimated Nutritional Goals Calories/Kcals/Kg IBW 154lb/70kg Kcals Calculated 1750-2100kcal (25-30kcal/kg) Protein g/kg: IBW Protein Calculated 70g (1g/kg) Fluid: ml 1750-2100ml (1ml/kcal) Nutritional Problem 1. Problem Problem No nutritional problems at this time. Intervention/Recommendation Comments 1. Continue with pureed diet. Avg PO intake is adequate. 2. Monitor weight. Expected Outcomes/Goals Expected Outcomes/Goals 1. PO intake continue to meet 100% of estimated nutritional needs.
[2016-10-05] MEDS: Morphine Sulfate 2 mg/mL 1mL Syr IVP PRN (21:47)
[2016-10-06] MEDS: Pantoprazole 40 mg EC Tab PO SCH (08:38)
[2016-10-06] MEDS: Silver Antimicrobial Wound Gel 0.25 oz Tube TP SCH (08:39)
[2016-10-06] MEDS: Morphine Sulfate 2 mg/mL 1mL Syr IVP PRN ×2 (17:13→21:18)
[2016-10-06] MEDS: D5-0.45NS 1,000 ML IV SCH (17:39)
[2016-10-07] MEDS: D5-0.45NS 1,000 ML IV SCH ×2 (05:18→21:23)
[2016-10-07] MEDS: Pantoprazole 40 mg EC Tab PO SCH (09:13)
[2016-10-07] MEDS: Morphine Sulfate 2 mg/mL 1mL Syr IVP PRN ×2 (09:21→21:25)
--- NOTE | 2016-10-07 23:13 | Infectious Disease Prog Note ---
Infectious Disease Subjective - Review of Systems Service Date: 10/07/16 Subjective: No change. Infectious Disease Objective - Results Result Diagrams: 10/05/16 05:41 10/05/16 05:41 Recent Labs: Laboratory Last Values WBC 6.9 Th/cmm (4.8-10.8) 10/05/16 05:41 RBC 4.27 Mil/cmm (4.30-5.70) L 10/05/16 05:41 Hgb 12.8 gm/dL (13.2-17.3) L 10/05/16 05:41 Hct 37.1 % (39.0-49.0) L 10/05/16 05:41 MCV 86.9 fl (80-99) 10/05/16 05:41 MCH 29.9 pg (26.0-30.0) 10/05/16 05:41 MCHC Differential 34.4 pg (28.0-36.0) 10/05/16 05:41 RDW 13.9 % (11.5-20.0) 10/05/16 05:41 Plt Count 284 Th/cmm (150-400) 10/05/16 05:41 MPV 5.8 fl 10/05/16 05:41 Neutrophils % 71.0 % (40.0-80.0) 10/05/16 05:41 Lymphocytes % 16.4 % (20.0-50.0) L 10/05/16 05:41 Monocytes % 7.2 % (2.0-10.0) 10/05/16 05:41 Eosinophils % 4.6 % (0.0-5.0) 10/05/16 05:41 Basophils % 0.8 % (0.0-2.0) 10/05/16 05:41 ESR 36 mm/hr (0-20) H 10/03/16 06:26 PT 10.4 SECONDS (9.5-11.5) 09/28/16 21:35 INR 1.00 (0.5-1.4) 09/28/16 21:35 PTT (Actin FS) 25.7 SECONDS (26.0-38.0) L 09/28/16 21:35 Sodium 137 mEq/L (136-145) 10/05/16 05:41 Potassium 4.4 mEq/L (3.5-5.1) 10/05/16 05:41 Chloride 107 mEq/L (98-107) 10/05/16 05:41 Carbon Dioxide 27.0 mEq/L (21.0-31.0) 10/05/16 05:41 Anion Gap 7.4 (7.0-16.0) 10/05/16 05:41 BUN 16 mg/dL (7-25) 10/05/16 05:41 Creatinine 1.1 mg/dL (0.7-1.3) 10/05/16 05:41 Est GFR ( Amer) > 60.0 ml/min (>90) 10/05/16 05:41 Est GFR (Non-Af Amer) > 60.0 ml/min 10/05/16 05:41 BUN/Creatinine Ratio 14.5 10/05/16 05:41 Glucose 84 mg/dL (70-105) 10/05/16 05:41 POC Glucose 105 MG/DL (70 - 105) 10/06/16 03:13 Whole Bld Lactic Acid 1.95 mmol/L (0.60-1.99) 09/28/16 21:35 Calcium 9.2 mg/dL (8.6-10.3) 10/05/16 05:41 Total Bilirubin 0.3 mg/dL (0.3-1.0) 10/05/16 05:41 AST 16 U/L (13-39) 10/05/16 05:41 ALT 10 U/L (7-52) 10/05/16 05:41 Alkaline Phosphatase 60 U/L (34-104) 10/05/16 05:41 Creatine Kinase 72 U/L (30-223) 09/28/16 21:35 Troponin I < 0.01 ng/mL (0.01-0.05) L 09/28/16 21:35 Total Protein 7.0 gm/dL (6.0-8.3) 10/05/16 05:41 Albumin 3.4 gm/dL (4.2-5.5) L 10/05/16 05:41 Globulin 3.6 gm/dL 10/05/16 05:41 Albumin/Globulin Ratio 0.9 (1.0-1.8) L 10/05/16 05:41 Vancomycin Trough 13.8 ug/mL (10-20) 10/05/16 09:20 - Physical Exam Vitals and I&O: Vital Signs Temp 99 F 10/07/16 16:00 Pulse 84 10/07/16 16:00 Resp 19 10/07/16 20:00 BP 124/84 10/07/16 16:00 Pulse Ox 95 10/07/16 16:00 Intake & Output 10/07/16 10/07/16 10/08/16 06:59 18:59 06:59 Intake Total 1565.5 250 1300 Balance 1565.5 250 1300 Intake: Intake, IV Amount 1065.5 250 1000 D5-0.45NS 1,000 ml @ 70 815.5 1000 mls/hr IV .[id number] [facility] Rx #:[id number] Vancomycin HCl 1 gm In 250 250 Sodium Chloride 0.9% 250 ml @ 165 mls/hr IV Q12H [facility] Rx#:[id number] Oral 500 300 Other: # Voids 2 1 Active Medications: Current Medications Vancomycin HCl 1 gm/ Sodium (Chloride) 250 mls @ 165 mls/hr IV Q12H [facility] Stop: 11/28/16 09:59 Last Admin: 10/07/16 21:23 Dose: 165 mls/hr Dextrose/Sodium Chloride (D5-0.45ns) 1,000 mls @ 70 mls/hr IV .[id number] [facility] Stop: 11/29/16 16:12 Last Admin: 10/07/16 21:23 Dose: 70 mls/hr Lisinopril (Zestril) 10 mg PO DAILY [facility] Stop: 11/29/16 08:59 Last Admin: 10/07/16 09:13 Dose: 10 mg Miscellaneous (Vancomycin Iv Per Pharmacy) 1 ea MC PRN PRN PRN Reason: PROTOCOL Stop: 11/28/16 01:46 Morphine Sulfate (Morphine) 2 mg IVP Q3HR PRN PRN Reason: Pain (Severe) Stop: 11/28/16 01:46 Last Admin: 10/07/16 21:25 Dose: 2 mg Naproxen (Naprosyn) 500 mg PO BIDWM [facility] Stop: 12/03/16 17:59 Last Admin: 10/07/16 18:00 Dose: 500 mg Ondansetron HCl (Zofran) 4 mg IV Q6H PRN PRN Reason: Nausea / Vomiting Stop: 11/28/16 01:46 Pantoprazole Sodium (Protonix) 40 mg PO DAILY [facility] Stop: 12/03/16 08:59 Last Admin: 10/07/16 09:13 Dose: 40 mg Tamsulosin HCl (Flomax) 0.4 mg PO DAILY [facility] Stop: 11/29/16 08:59 Last Admin: 10/07/16 09:13 Dose: 0.4 mg Wound Care/Dressing Products (Silvasorb) 1 appl TP DAILY [facility] Stop: 11/28/16 12:59 Last Admin: 10/06/16 08:39 Dose: 1 appl General: no acute distress, well developed, well nourished HEENT: atraumatic, normocephalic, PERRLA, EOMI, other (no gill ein lower facial swellind and wound.), no moist mucous membrane Cardiovascular: S1S2, regular Lungs: clear to auscultation bilaterally, clear to percussion Abdomen: soft, no tender, no distended Extremities: no cyanosis, no clubbing, no edema Neurological: awake, alert, oriented Infectious Disease Assmt/Plan - Problem List Patient Problems: All Active Problems PALPAIT (Acute) Palpitation (Acute 02/23/14) R00.2 - Assessment Assessment: Impression: 1. 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 wound culture grew MRSA. 2. H/O CA mandile. - Plan Plan: Continue same antibiotics : vanco. Patient is waiting for transfer to higher level of care. 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 RD consult for right anterior lateral neck submandibular abscess. Pt was sitting upright in bed, alert and pleasant. Observed pt finished 100% of lunch, avg PO intake 100% since adm, meeting nutritional needs. Pt stated pureed meal appears too little for him, RD ensured pt meal provides enough to meet pt's nutritional needs. Discussed texture with pt, pt wants to continue with current diet, no difficulties eating/swalloing , just pain, stated no nutritional concerns at this time. Pt appears nourished, no significant muscle/fat wasting or weight loss noted. Current Diet Order/ Nutrition Support Pureed Pertinent Medications D5, Vancomycin, Morphine, Zofran, Vancomycin Pertinent Labs Reviewed. Nutritional Hx/Data Height 1.73 m Height (Calculated Centimeters) 172.7 Current Weight (lbs) 81.647 kg Weight (Calculated Kilograms) 81.6 Weight (Calculated Grams) 98543.6 Usual body Weight (lbs) 180 [place] Body Weight 154lb Recent Weight Change No Weight Status Overweight GI Symptoms Food Allergies No Cultural/Ethnic/Samaritan Belief Unknown. Usual diet at home Unknown. Skin Integrity/Comment: Norman 20. Abscess/open wound to right jaw, otherwise skin intact. Current %PO Good (75-100%) Estimated Nutritional Goals Calories/Kcals/Kg IBW 154lb/70kg Kcals Calculated 1750-2100kcal (25-30kcal/kg) Protein g/kg: IBW Protein Calculated 70g (1g/kg) Fluid: ml 1750-2100ml (1ml/kcal) Nutritional Problem 1. Problem Problem No nutritional problems at this time. Intervention/Recommendation Comments 1. Continue with pureed diet. Avg PO intake is adequate. 2. Monitor weight. Expected Outcomes/Goals Expected Outcomes/Goals 1. PO intake continue to meet 100% of estimated nutritional needs.
[2016-10-08] MEDS: Silver Antimicrobial Wound Gel 0.25 oz Tube TP SCH (08:46)
[2016-10-08] MEDS: Pantoprazole 40 mg EC Tab PO SCH (08:47)
--- NOTE | 2016-10-08 11:13 | Infectious Disease Prog Note ---
Infectious Disease Subjective - Review of Systems Service Date: 10/08/16 Subjective: No change. Infectious Disease Objective - Results Result Diagrams: 10/05/16 05:41 10/05/16 05:41 Recent Labs: Laboratory Last Values WBC 6.9 Th/cmm (4.8-10.8) 10/05/16 05:41 RBC 4.27 Mil/cmm (4.30-5.70) L 10/05/16 05:41 Hgb 12.8 gm/dL (13.2-17.3) L 10/05/16 05:41 Hct 37.1 % (39.0-49.0) L 10/05/16 05:41 MCV 86.9 fl (80-99) 10/05/16 05:41 MCH 29.9 pg (26.0-30.0) 10/05/16 05:41 MCHC Differential 34.4 pg (28.0-36.0) 10/05/16 05:41 RDW 13.9 % (11.5-20.0) 10/05/16 05:41 Plt Count 284 Th/cmm (150-400) 10/05/16 05:41 MPV 5.8 fl 10/05/16 05:41 Neutrophils % 71.0 % (40.0-80.0) 10/05/16 05:41 Lymphocytes % 16.4 % (20.0-50.0) L 10/05/16 05:41 Monocytes % 7.2 % (2.0-10.0) 10/05/16 05:41 Eosinophils % 4.6 % (0.0-5.0) 10/05/16 05:41 Basophils % 0.8 % (0.0-2.0) 10/05/16 05:41 ESR 36 mm/hr (0-20) H 10/03/16 06:26 PT 10.4 SECONDS (9.5-11.5) 09/28/16 21:35 INR 1.00 (0.5-1.4) 09/28/16 21:35 PTT (Actin FS) 25.7 SECONDS (26.0-38.0) L 09/28/16 21:35 Sodium 137 mEq/L (136-145) 10/05/16 05:41 Potassium 4.4 mEq/L (3.5-5.1) 10/05/16 05:41 Chloride 107 mEq/L (98-107) 10/05/16 05:41 Carbon Dioxide 27.0 mEq/L (21.0-31.0) 10/05/16 05:41 Anion Gap 7.4 (7.0-16.0) 10/05/16 05:41 BUN 16 mg/dL (7-25) 10/05/16 05:41 Creatinine 1.1 mg/dL (0.7-1.3) 10/05/16 05:41 Est GFR ( Amer) > 60.0 ml/min (>90) 10/05/16 05:41 Est GFR (Non-Af Amer) > 60.0 ml/min 10/05/16 05:41 BUN/Creatinine Ratio 14.5 10/05/16 05:41 Glucose 84 mg/dL (70-105) 10/05/16 05:41 POC Glucose 105 MG/DL (70 - 105) 10/06/16 03:13 Whole Bld Lactic Acid 1.95 mmol/L (0.60-1.99) 09/28/16 21:35 Calcium 9.2 mg/dL (8.6-10.3) 10/05/16 05:41 Total Bilirubin 0.3 mg/dL (0.3-1.0) 10/05/16 05:41 AST 16 U/L (13-39) 10/05/16 05:41 ALT 10 U/L (7-52) 10/05/16 05:41 Alkaline Phosphatase 60 U/L (34-104) 10/05/16 05:41 Creatine Kinase 72 U/L (30-223) 09/28/16 21:35 Troponin I < 0.01 ng/mL (0.01-0.05) L 09/28/16 21:35 Total Protein 7.0 gm/dL (6.0-8.3) 10/05/16 05:41 Albumin 3.4 gm/dL (4.2-5.5) L 10/05/16 05:41 Globulin 3.6 gm/dL 10/05/16 05:41 Albumin/Globulin Ratio 0.9 (1.0-1.8) L 10/05/16 05:41 Vancomycin Trough 13.8 ug/mL (10-20) 10/05/16 09:20 - Physical Exam Vitals and I&O: Vital Signs Temp 98.7 F 10/08/16 08:00 Pulse 73 10/08/16 08:47 Resp 18 10/08/16 08:00 BP 127/71 10/08/16 08:47 Pulse Ox 97 10/08/16 08:00 Intake & Output 10/07/16 10/08/16 10/08/16 18:59 06:59 18:59 Intake Total 250 1750 Balance 250 1750 Intake: Intake, IV Amount 250 1250 D5-0.45NS 1,000 ml @ 70 1000 mls/hr IV .[id number] [facility] Rx #:[id number] Vancomycin HCl 1 gm In 250 250 Sodium Chloride 0.9% 250 ml @ 165 mls/hr IV Q12H [facility] Rx#:[id number] Oral 500 Other: # Voids 2 Active Medications: Current Medications Dextrose/Sodium Chloride (D5-0.45ns) 1,000 mls @ 70 mls/hr IV .[id number] [facility] Stop: 11/29/16 16:12 Last Admin: 10/07/16 21:23 Dose: 70 mls/hr Vancomycin HCl 1 gm/ Sodium (Chloride) 250 mls @ 165 mls/hr IV Q12H [facility] Stop: 12/07/16 11:59 Lisinopril (Zestril) 10 mg PO DAILY [facility] Stop: 11/29/16 08:59 Last Admin: 10/08/16 08:47 Dose: 10 mg Miscellaneous (Vancomycin Iv Per Pharmacy) 1 ea MC PRN PRN PRN Reason: PROTOCOL Stop: 11/28/16 01:46 Morphine Sulfate (Morphine) 2 mg IVP Q3HR PRN PRN Reason: Pain (Severe) Stop: 11/28/16 01:46 Last Admin: 10/07/16 21:25 Dose: 2 mg Naproxen (Naprosyn) 500 mg PO BIDWM [facility] Stop: 12/03/16 17:59 Last Admin: 10/08/16 08:47 Dose: 500 mg Ondansetron HCl (Zofran) 4 mg IV Q6H PRN PRN Reason: Nausea / Vomiting Stop: 11/28/16 01:46 Pantoprazole Sodium (Protonix) 40 mg PO DAILY [facility] Stop: 12/03/16 08:59 Last Admin: 10/08/16 08:47 Dose: 40 mg Tamsulosin HCl (Flomax) 0.4 mg PO DAILY [facility] Stop: 11/29/16 08:59 Last Admin: 10/08/16 08:48 Dose: 0.4 mg Wound Care/Dressing Products (Silvasorb) 1 appl TP DAILY [facility] Stop: 11/28/16 12:59 Last Admin: 10/08/16 08:46 Dose: 1 appl General: no acute distress, well developed, well nourished HEENT: atraumatic, normocephalic, PERRLA, EOMI, moist mucous membrane, no other (no change in the facial swelling on right lower face. Decrease in pus.) Neck: supple, no thyromegaly, no lymphadenopathy Cardiovascular: S1S2, regular Lungs: clear to auscultation bilaterally, clear to percussion Abdomen: soft, no tender, no distended Extremities: no cyanosis, no clubbing, no edema Neurological: awake, alert, oriented Infectious Disease Assmt/Plan - Problem List Patient Problems: All Active Problems PALPAIT (Acute) Palpitation (Acute 02/23/14) R00.2 - Assessment Assessment: Impression: 1. 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 wound culture grew MRSA. 2. H/O CA mandile. - Plan Plan: Continue same antibiotics : vanco. Patient is waiting for transfer to higher level of care. 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 RD consult for right anterior lateral neck submandibular abscess. Pt was sitting upright in bed, alert and pleasant. Observed pt finished 100% of lunch, avg PO intake 100% since adm, meeting nutritional needs. Pt stated pureed meal appears too little for him, RD ensured pt meal provides enough to meet pt's nutritional needs. Discussed texture with pt, pt wants to continue with current diet, no difficulties eating/swalloing , just pain, stated no nutritional concerns at this time. Pt appears nourished, no significant muscle/fat wasting or weight loss noted. Current Diet Order/ Nutrition Support Pureed Pertinent Medications D5, Vancomycin, Morphine, Zofran, Vancomycin Pertinent Labs Reviewed. Nutritional Hx/Data Height 1.73 m Height (Calculated Centimeters) 172.7 Current Weight (lbs) 81.647 kg Weight (Calculated Kilograms) 81.6 Weight (Calculated Grams) 37567.6 Usual body Weight (lbs) 180 [place] Body Weight 154lb Recent Weight Change No Weight Status Overweight GI Symptoms Food Allergies No Cultural/Ethnic/Scientology Belief Unknown. Usual diet at home Unknown. Skin Integrity/Comment: [place] 20. Abscess/open wound to right jaw, otherwise skin intact. Current %PO Good (75-100%) Estimated Nutritional Goals Calories/Kcals/Kg IBW 154lb/70kg Kcals Calculated 1750-2100kcal (25-30kcal/kg) Protein g/kg: IBW Protein Calculated 70g (1g/kg) Fluid: ml 1750-2100ml (1ml/kcal) Nutritional Problem 1. Problem Problem No nutritional problems at this time. Intervention/Recommendation Comments 1. Continue with pureed diet. Avg PO intake is adequate. 2. Monitor weight. Expected Outcomes/Goals Expected Outcomes/Goals 1. PO intake continue to meet 100% of estimated nutritional needs.
[2016-10-08] MEDS: D5-0.45NS 1,000 ML IV SCH (20:17)
[2016-10-09 06:02] LABS: ANION GAP 4.7 (7.0-16.0); BUN - UREA NITROGEN 23 mg/dL (7-25); BUN/CREATININE RATIO 20.9; CALCIUM SERUM 8.9 mg/dL (8.6-10.3); CARBON DIOXIDE 26.4 mEq/L (21.0-31.0); CHLORIDE 109 mEq/L (98-107); CREATININE - SERUM 1.1 mg/dL (0.7-1.3); GLUCOSE 85 mg/dL (70-105); POTASSIUM SERUM 4.1 mEq/L (3.5-5.1); SODIUM SERUM 136 mEq/L (136-145)
[2016-10-09] MEDS: Pantoprazole 40 mg EC Tab PO SCH (08:47)
[2016-10-09] MEDS: Morphine Sulfate 2 mg/mL 1mL Syr IVP PRN ×2 (11:42→21:25)
[2016-10-09] MEDS: D5-0.45NS 1,000 ML IV SCH (15:31)
[2016-10-09] MEDS: Silver Antimicrobial Wound Gel 0.25 oz Tube TP SCH ×2 (15:31→16:21)
--- NOTE | 2016-10-09 15:47 | Infectious Disease Prog Note ---
Infectious Disease Subjective - Review of Systems Service Date: 10/09/16 Subjective: No change. Infectious Disease Objective - Results Result Diagrams: 10/05/16 05:41 10/09/16 05:12 Recent Labs: Laboratory Last Values WBC 6.9 Th/cmm (4.8-10.8) 10/05/16 05:41 RBC 4.27 Mil/cmm (4.30-5.70) L 10/05/16 05:41 Hgb 12.8 gm/dL (13.2-17.3) L 10/05/16 05:41 Hct 37.1 % (39.0-49.0) L 10/05/16 05:41 MCV 86.9 fl (80-99) 10/05/16 05:41 MCH 29.9 pg (26.0-30.0) 10/05/16 05:41 MCHC Differential 34.4 pg (28.0-36.0) 10/05/16 05:41 RDW 13.9 % (11.5-20.0) 10/05/16 05:41 Plt Count 284 Th/cmm (150-400) 10/05/16 05:41 MPV 5.8 fl 10/05/16 05:41 Neutrophils % 71.0 % (40.0-80.0) 10/05/16 05:41 Lymphocytes % 16.4 % (20.0-50.0) L 10/05/16 05:41 Monocytes % 7.2 % (2.0-10.0) 10/05/16 05:41 Eosinophils % 4.6 % (0.0-5.0) 10/05/16 05:41 Basophils % 0.8 % (0.0-2.0) 10/05/16 05:41 ESR 36 mm/hr (0-20) H 10/03/16 06:26 PT 10.4 SECONDS (9.5-11.5) 09/28/16 21:35 INR 1.00 (0.5-1.4) 09/28/16 21:35 PTT (Actin FS) 25.7 SECONDS (26.0-38.0) L 09/28/16 21:35 Sodium 136 mEq/L (136-145) 10/09/16 05:12 Potassium 4.1 mEq/L (3.5-5.1) 10/09/16 05:12 Chloride 109 mEq/L (98-107) H 10/09/16 05:12 Carbon Dioxide 26.4 mEq/L (21.0-31.0) 10/09/16 05:12 Anion Gap 4.7 (7.0-16.0) L 10/09/16 05:12 BUN 23 mg/dL (7-25) 10/09/16 05:12 Creatinine 1.1 mg/dL (0.7-1.3) 10/09/16 05:12 Est GFR ( Amer) > 60.0 ml/min (>90) 10/09/16 05:12 Est GFR (Non-Af Amer) > 60.0 ml/min 10/09/16 05:12 BUN/Creatinine Ratio 20.9 10/09/16 05:12 Glucose 85 mg/dL (70-105) 10/09/16 05:12 POC Glucose 105 MG/DL (70 - 105) 10/06/16 03:13 Whole Bld Lactic Acid 1.95 mmol/L (0.60-1.99) 09/28/16 21:35 Calcium 8.9 mg/dL (8.6-10.3) 10/09/16 05:12 Total Bilirubin 0.3 mg/dL (0.3-1.0) 10/05/16 05:41 AST 16 U/L (13-39) 10/05/16 05:41 ALT 10 U/L (7-52) 10/05/16 05:41 Alkaline Phosphatase 60 U/L (34-104) 10/05/16 05:41 Creatine Kinase 72 U/L (30-223) 09/28/16 21:35 Troponin I < 0.01 ng/mL (0.01-0.05) L 09/28/16 21:35 Total Protein 7.0 gm/dL (6.0-8.3) 10/05/16 05:41 Albumin 3.4 gm/dL (4.2-5.5) L 10/05/16 05:41 Globulin 3.6 gm/dL 10/05/16 05:41 Albumin/Globulin Ratio 0.9 (1.0-1.8) L 10/05/16 05:41 Vancomycin Trough 14.2 ug/mL (10-20) 10/08/16 23:04 - Physical Exam Vitals and I&O: Vital Signs Temp 98.3 F 10/09/16 12:00 Pulse 73 10/09/16 12:00 Resp 18 10/09/16 12:00 BP 105/69 10/09/16 12:00 Pulse Ox 95 10/09/16 12:00 Intake & Output 10/08/16 10/09/16 10/09/16 18:59 06:59 18:59 Intake Total 2310 450 1150 Output Total 900 Balance 2310 -450 1150 Intake: Intake, IV Amount 1998 621 4286 D5-0.45NS 1,000 ml @ 70 1000 1000 mls/hr IV .[id number] [facility] Rx #:[id number] Vancomycin HCl 1 gm In 250 250 Sodium Chloride 0.9% 250 ml @ 165 mls/hr IV Q12H [facility] Rx#:[id number] Oral 1060 200 150 Output: Urine 900 Other: # Voids 3 3 # Bowel Movements 0 Stool Characteristics Soft Active Medications: Current Medications Dextrose/Sodium Chloride (D5-0.45ns) 1,000 mls @ 70 mls/hr IV .[id number] [facility] Stop: 11/29/16 16:12 Last Admin: 10/09/16 15:31 Dose: 70 mls/hr Vancomycin HCl 1 gm/ Sodium (Chloride) 250 mls @ 165 mls/hr IV Q12H [facility] Stop: 12/07/16 11:59 Last Admin: 10/09/16 11:42 Dose: 165 mls/hr Lisinopril (Zestril) 10 mg PO DAILY [facility] Stop: 11/29/16 08:59 Last Admin: 10/09/16 08:48 Dose: 10 mg Miscellaneous (Vancomycin Iv Per Pharmacy) 1 ea [facility] PRN PRN PRN Reason: PROTOCOL Stop: 11/28/16 01:46 Morphine Sulfate (Morphine) 2 mg IVP Q3HR PRN PRN Reason: Pain (Severe) Stop: 11/28/16 01:46 Last Admin: 10/09/16 11:42 Dose: 2 mg Naproxen (Naprosyn) 500 mg PO BIDWM [facility] Stop: 12/03/16 17:59 Last Admin: 10/09/16 08:47 Dose: 500 mg Ondansetron HCl (Zofran) 4 mg IV Q6H PRN PRN Reason: Nausea / Vomiting Stop: 11/28/16 01:46 Pantoprazole Sodium (Protonix) 40 mg PO DAILY [facility] Stop: 12/03/16 08:59 Last Admin: 10/09/16 08:47 Dose: 40 mg Tamsulosin HCl (Flomax) 0.4 mg PO DAILY [facility] Stop: 11/29/16 08:59 Last Admin: 10/09/16 08:47 Dose: 0.4 mg Wound Care/Dressing Products (Silvasorb) 1 appl TP DAILY [facility] Stop: 11/28/16 12:59 Last Admin: 10/09/16 15:31 Dose: 1 appl General: no acute distress, well developed, well nourished HEENT: atraumatic, normocephalic, PERRLA, EOMI, moist mucous membrane, other ( swelling of right lower face has gone down.) Neck: supple Cardiovascular: S1S2, regular Lungs: clear to auscultation bilaterally, clear to percussion Abdomen: soft, no tender, no distended Extremities: no cyanosis, no clubbing, no edema Neurological: awake, alert, oriented Skin: intact Infectious Disease Assmt/Plan - Problem List Patient Problems: All Active Problems PALPAIT (Acute) Palpitation (Acute 02/23/14) R00.2 - Assessment Assessment: Impression: 1. 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 wound culture grew MRSA. 2. H/O CA mandile. - Plan Plan: Continue same antibiotics : vanco IV for 6 weeks from now. Add Rifampin 300 mg po bid for 6 weeks along with vanco. Dc planning. 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 RD consult for right anterior lateral neck submandibular abscess. Pt was sitting upright in bed, alert and pleasant. Observed pt finished 100% of lunch, avg PO intake 100% since adm, meeting nutritional needs. Pt stated pureed meal appears too little for him, RD ensured pt meal provides enough to meet pt's nutritional needs. Discussed texture with pt, pt wants to continue with current diet, no difficulties eating/swalloing , just pain, stated no nutritional concerns at this time. Pt appears nourished, no significant muscle/fat wasting or weight loss noted. Current Diet Order/ Nutrition Support Pureed Pertinent Medications D5, Vancomycin, Morphine, Zofran, Vancomycin Pertinent Labs Reviewed. Nutritional Hx/Data Height 1.73 m Height (Calculated Centimeters) 172.7 Current Weight (lbs) 81.647 kg Weight (Calculated Kilograms) 81.6 Weight (Calculated Grams) 99670.6 Usual body Weight (lbs) 180 [place] Body Weight 154lb Recent Weight Change No Weight Status Overweight GI Symptoms Food Allergies No Cultural/Ethnic/Religion Belief Unknown. Usual diet at home Unknown. Skin Integrity/Comment: Norman 20. Abscess/open wound to right jaw, otherwise skin intact. Current %PO Good (75-100%) Estimated Nutritional Goals Calories/Kcals/Kg IBW 154lb/70kg Kcals Calculated 1750-2100kcal (25-30kcal/kg) Protein g/kg: IBW Protein Calculated 70g (1g/kg) Fluid: ml 1750-2100ml (1ml/kcal) Nutritional Problem 1. Problem Problem No nutritional problems at this time. Intervention/Recommendation Comments 1. Continue with pureed diet. Avg PO intake is adequate. 2. Monitor weight. Expected Outcomes/Goals Expected Outcomes/Goals 1. PO intake continue to meet 100% of estimated nutritional needs.
[2016-10-09] MEDS: Rifampin 300 mg Cap PO SCH (16:19)
[2016-10-10] MEDS: Pantoprazole 40 mg EC Tab PO SCH (08:38)
[2016-10-10] MEDS: Morphine Sulfate 2 mg/mL 1mL Syr IVP PRN ×2 (08:39→15:39)
[2016-10-10] MEDS: Rifampin 300 mg Cap PO SCH ×2 (08:39→17:47)
[2016-10-10] MEDS: Silver Antimicrobial Wound Gel 0.25 oz Tube TP SCH (08:39)
[2016-10-10] MEDS: D5-0.45NS 1,000 ML IV SCH (10:26)
--- NOTE | 2016-10-10 23:35 | Infectious Disease Prog Note ---
Infectious Disease Subjective - Review of Systems Service Date: 10/10/16 Subjective: No change. Infectious Disease Objective - Results Result Diagrams: 10/05/16 05:41 10/09/16 05:12 Recent Labs: Laboratory Last Values WBC 6.9 Th/cmm (4.8-10.8) 10/05/16 05:41 RBC 4.27 Mil/cmm (4.30-5.70) L 10/05/16 05:41 Hgb 12.8 gm/dL (13.2-17.3) L 10/05/16 05:41 Hct 37.1 % (39.0-49.0) L 10/05/16 05:41 MCV 86.9 fl (80-99) 10/05/16 05:41 MCH 29.9 pg (26.0-30.0) 10/05/16 05:41 MCHC Differential 34.4 pg (28.0-36.0) 10/05/16 05:41 RDW 13.9 % (11.5-20.0) 10/05/16 05:41 Plt Count 284 Th/cmm (150-400) 10/05/16 05:41 MPV 5.8 fl 10/05/16 05:41 Neutrophils % 71.0 % (40.0-80.0) 10/05/16 05:41 Lymphocytes % 16.4 % (20.0-50.0) L 10/05/16 05:41 Monocytes % 7.2 % (2.0-10.0) 10/05/16 05:41 Eosinophils % 4.6 % (0.0-5.0) 10/05/16 05:41 Basophils % 0.8 % (0.0-2.0) 10/05/16 05:41 ESR 36 mm/hr (0-20) H 10/03/16 06:26 PT 10.4 SECONDS (9.5-11.5) 09/28/16 21:35 INR 1.00 (0.5-1.4) 09/28/16 21:35 PTT (Actin FS) 25.7 SECONDS (26.0-38.0) L 09/28/16 21:35 Sodium 136 mEq/L (136-145) 10/09/16 05:12 Potassium 4.1 mEq/L (3.5-5.1) 10/09/16 05:12 Chloride 109 mEq/L (98-107) H 10/09/16 05:12 Carbon Dioxide 26.4 mEq/L (21.0-31.0) 10/09/16 05:12 Anion Gap 4.7 (7.0-16.0) L 10/09/16 05:12 BUN 23 mg/dL (7-25) 10/09/16 05:12 Creatinine 1.1 mg/dL (0.7-1.3) 10/09/16 05:12 Est GFR ( Amer) > 60.0 ml/min (>90) 10/09/16 05:12 Est GFR (Non-Af Amer) > 60.0 ml/min 10/09/16 05:12 BUN/Creatinine Ratio 20.9 10/09/16 05:12 Glucose 85 mg/dL (70-105) 10/09/16 05:12 POC Glucose 105 MG/DL (70 - 105) 10/06/16 03:13 Whole Bld Lactic Acid 1.95 mmol/L (0.60-1.99) 09/28/16 21:35 Calcium 8.9 mg/dL (8.6-10.3) 10/09/16 05:12 Total Bilirubin 0.3 mg/dL (0.3-1.0) 10/05/16 05:41 AST 16 U/L (13-39) 10/05/16 05:41 ALT 10 U/L (7-52) 10/05/16 05:41 Alkaline Phosphatase 60 U/L (34-104) 10/05/16 05:41 Creatine Kinase 72 U/L (30-223) 09/28/16 21:35 Troponin I < 0.01 ng/mL (0.01-0.05) L 09/28/16 21:35 Total Protein 7.0 gm/dL (6.0-8.3) 10/05/16 05:41 Albumin 3.4 gm/dL (4.2-5.5) L 10/05/16 05:41 Globulin 3.6 gm/dL 10/05/16 05:41 Albumin/Globulin Ratio 0.9 (1.0-1.8) L 10/05/16 05:41 Vancomycin Trough 14.2 ug/mL (10-20) 10/08/16 23:04 - Physical Exam Vitals and I&O: Vital Signs Temp 98.8 F 10/10/16 20:00 Pulse 79 10/10/16 20:00 Resp 20 10/10/16 20:00 BP 115/79 10/10/16 20:00 Pulse Ox 97 10/10/16 20:00 Intake & Output 10/10/16 10/10/16 10/11/16 06:59 18:59 06:59 Intake Total 550 1000 Balance 550 1000 Intake: Intake, IV Amount 250 1000 D5-0.45NS 1,000 ml @ 70 1000 mls/hr IV .[id number] [facility] Rx #:[id number] Vancomycin HCl 1 gm In 250 Sodium Chloride 0.9% 250 ml @ 165 mls/hr IV Q12H [facility] Rx#:[id number] Oral 300 Other: # Voids 2 Active Medications: Current Medications Dextrose/Sodium Chloride (D5-0.45ns) 1,000 mls @ 70 mls/hr IV .[id number] [facility] Stop: 11/29/16 16:12 Last Admin: 10/10/16 10:26 Dose: 70 mls/hr Vancomycin HCl 1 gm/ Sodium (Chloride) 250 mls @ 165 mls/hr IV Q12H [facility] Stop: 12/07/16 11:59 Last Admin: 10/10/16 11:43 Dose: 165 mls/hr Lisinopril (Zestril) 10 mg PO DAILY [facility] Stop: 11/29/16 08:59 Last Admin: 10/10/16 08:38 Dose: 10 mg Miscellaneous (Vancomycin Iv Per Pharmacy) 1 ea [facility] PRN PRN PRN Reason: PROTOCOL Stop: 11/28/16 01:46 Morphine Sulfate (Morphine) 2 mg IVP Q3HR PRN PRN Reason: Pain (Severe) Stop: 11/28/16 01:46 Last Admin: 10/10/16 15:39 Dose: 2 mg Naproxen (Naprosyn) 500 mg PO BIDWM [facility] Stop: 12/03/16 17:59 Last Admin: 10/10/16 17:47 Dose: 500 mg Ondansetron HCl (Zofran) 4 mg IV Q6H PRN PRN Reason: Nausea / Vomiting Stop: 11/28/16 01:46 Pantoprazole Sodium (Protonix) 40 mg PO DAILY [facility] Stop: 12/03/16 08:59 Last Admin: 10/10/16 08:38 Dose: 40 mg Rifampin (Rifadin) 300 mg PO BID [facility] Stop: 12/08/16 16:59 Last Admin: 10/10/16 17:47 Dose: 300 mg Tamsulosin HCl (Flomax) 0.4 mg PO DAILY [facility] Stop: 11/29/16 08:59 Last Admin: 10/10/16 08:38 Dose: 0.4 mg Wound Care/Dressing Products (Silvasorb) 1 appl TP DAILY [facility] Stop: 11/28/16 12:59 Last Admin: 10/10/16 08:39 Dose: 1 appl General: no acute distress, well developed, well nourished HEENT: atraumatic, normocephalic, PERRLA, EOMI, other (right lower facial swelling improving.) Neck: supple, no thyromegaly Cardiovascular: S1S2, regular Lungs: clear to auscultation bilaterally, clear to percussion Abdomen: soft, no tender, no distended Extremities: no cyanosis, no clubbing, no edema Neurological: awake, alert, oriented Skin: intact Infectious Disease Assmt/Plan - Problem List Patient Problems: All Active Problems PALPAIT (Acute) Palpitation (Acute 02/23/14) R00.2 - Assessment Assessment: Impression: 1. 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 wound culture grew MRSA. 2. H/O CA mandile. - Plan Plan: Continue same antibiotics : vanco IV for 6 weeks from now. Add Rifampin 300 mg po bid for 6 weeks along with vanco. Dc planning. 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 RD consult for right anterior lateral neck submandibular abscess. Pt was sitting upright in bed, alert and pleasant. Observed pt finished 100% of lunch, avg PO intake 100% since adm, meeting nutritional needs. Pt stated pureed meal appears too little for him, RD ensured pt meal provides enough to meet pt's nutritional needs. Discussed texture with pt, pt wants to continue with current diet, no difficulties eating/swalloing , just pain, stated no nutritional concerns at this time. Pt appears nourished, no significant muscle/fat wasting or weight loss noted. Current Diet Order/ Nutrition Support Pureed Pertinent Medications D5, Vancomycin, Morphine, Zofran, Vancomycin Pertinent Labs Reviewed. Nutritional Hx/Data Height 1.73 m Height (Calculated Centimeters) 172.7 Current Weight (lbs) 81.647 kg Weight (Calculated Kilograms) 81.6 Weight (Calculated Grams) 12870.6 Usual body Weight (lbs) 180 [place] Body Weight 154lb Recent Weight Change No Weight Status Overweight GI Symptoms Food Allergies No Cultural/Ethnic/Hindu Belief Unknown. Usual diet at home Unknown. Skin Integrity/Comment: Norman 20. Abscess/open wound to right jaw, otherwise skin intact. Current %PO Good (75-100%) Estimated Nutritional Goals Calories/Kcals/Kg IBW 154lb/70kg Kcals Calculated 1750-2100kcal (25-30kcal/kg) Protein g/kg: IBW Protein Calculated 70g (1g/kg) Fluid: ml 1750-2100ml (1ml/kcal) Nutritional Problem 1. Problem Problem No nutritional problems at this time. Intervention/Recommendation Comments 1. Continue with pureed diet. Avg PO intake is adequate. 2. Monitor weight. Expected Outcomes/Goals Expected Outcomes/Goals 1. PO intake continue to meet 100% of estimated nutritional needs.
[2016-10-11] MEDS: D5-0.45NS 1,000 ML IV SCH (03:41)
[2016-10-11] MEDS: Rifampin 300 mg Cap PO SCH ×2 (09:36→16:25)
[2016-10-11] MEDS: Pantoprazole 40 mg EC Tab PO SCH (09:36)
[2016-10-11] MEDS: Morphine Sulfate 2 mg/mL 1mL Syr IVP PRN ×3 (11:52→20:27)
[2016-10-11] MEDS: Silver Antimicrobial Wound Gel 0.25 oz Tube TP SCH (14:35)
--- NOTE | 2016-10-11 23:55 | Infectious Disease Prog Note ---
Infectious Disease Subjective - Review of Systems Service Date: 10/11/16 Subjective: No change. Infectious Disease Objective - Results Result Diagrams: 10/05/16 05:41 10/09/16 05:12 Recent Labs: Laboratory Last Values WBC 6.9 Th/cmm (4.8-10.8) 10/05/16 05:41 RBC 4.27 Mil/cmm (4.30-5.70) L 10/05/16 05:41 Hgb 12.8 gm/dL (13.2-17.3) L 10/05/16 05:41 Hct 37.1 % (39.0-49.0) L 10/05/16 05:41 MCV 86.9 fl (80-99) 10/05/16 05:41 MCH 29.9 pg (26.0-30.0) 10/05/16 05:41 MCHC Differential 34.4 pg (28.0-36.0) 10/05/16 05:41 RDW 13.9 % (11.5-20.0) 10/05/16 05:41 Plt Count 284 Th/cmm (150-400) 10/05/16 05:41 MPV 5.8 fl 10/05/16 05:41 Neutrophils % 71.0 % (40.0-80.0) 10/05/16 05:41 Lymphocytes % 16.4 % (20.0-50.0) L 10/05/16 05:41 Monocytes % 7.2 % (2.0-10.0) 10/05/16 05:41 Eosinophils % 4.6 % (0.0-5.0) 10/05/16 05:41 Basophils % 0.8 % (0.0-2.0) 10/05/16 05:41 ESR 36 mm/hr (0-20) H 10/03/16 06:26 PT 10.4 SECONDS (9.5-11.5) 09/28/16 21:35 INR 1.00 (0.5-1.4) 09/28/16 21:35 PTT (Actin FS) 25.7 SECONDS (26.0-38.0) L 09/28/16 21:35 Sodium 136 mEq/L (136-145) 10/09/16 05:12 Potassium 4.1 mEq/L (3.5-5.1) 10/09/16 05:12 Chloride 109 mEq/L (98-107) H 10/09/16 05:12 Carbon Dioxide 26.4 mEq/L (21.0-31.0) 10/09/16 05:12 Anion Gap 4.7 (7.0-16.0) L 10/09/16 05:12 BUN 23 mg/dL (7-25) 10/09/16 05:12 Creatinine 1.1 mg/dL (0.7-1.3) 10/09/16 05:12 Est GFR ( Amer) > 60.0 ml/min (>90) 10/09/16 05:12 Est GFR (Non-Af Amer) > 60.0 ml/min 10/09/16 05:12 BUN/Creatinine Ratio 20.9 10/09/16 05:12 Glucose 85 mg/dL (70-105) 10/09/16 05:12 POC Glucose 105 MG/DL (70 - 105) 10/06/16 03:13 Whole Bld Lactic Acid 1.95 mmol/L (0.60-1.99) 09/28/16 21:35 Calcium 8.9 mg/dL (8.6-10.3) 10/09/16 05:12 Total Bilirubin 0.3 mg/dL (0.3-1.0) 10/05/16 05:41 AST 16 U/L (13-39) 10/05/16 05:41 ALT 10 U/L (7-52) 10/05/16 05:41 Alkaline Phosphatase 60 U/L (34-104) 10/05/16 05:41 Creatine Kinase 72 U/L (30-223) 09/28/16 21:35 Troponin I < 0.01 ng/mL (0.01-0.05) L 09/28/16 21:35 Total Protein 7.0 gm/dL (6.0-8.3) 10/05/16 05:41 Albumin 3.4 gm/dL (4.2-5.5) L 10/05/16 05:41 Globulin 3.6 gm/dL 10/05/16 05:41 Albumin/Globulin Ratio 0.9 (1.0-1.8) L 10/05/16 05:41 Vancomycin Trough 14.2 ug/mL (10-20) 10/08/16 23:04 - Physical Exam Vitals and I&O: Vital Signs Temp 98.8 F 10/11/16 20:00 Pulse 90 10/11/16 20:00 Resp 20 10/11/16 20:00 BP 147/93 10/11/16 20:00 Pulse Ox 98 10/11/16 20:00 Intake & Output 10/11/16 10/11/16 10/12/16 06:59 18:59 06:59 Intake Total 1250 2100 Output Total 1600 Balance 1250 500 Intake: Intake, IV Amount 1250 250 D5-0.45NS 1,000 ml @ 70 1000 mls/hr IV .[id number] [facility] Rx #:[id number] Vancomycin HCl 1 gm In 250 250 Sodium Chloride 0.9% 250 ml @ 165 mls/hr IV Q12H [facility] Rx#:[id number] Oral 1850 Output: Urine 1600 Other: Stool Characteristics Soft Formed Active Medications: Current Medications Dextrose/Sodium Chloride (D5-0.45ns) 1,000 mls @ 70 mls/hr IV .[id number] [facility] Stop: 11/29/16 16:12 Last Admin: 10/11/16 03:41 Dose: 70 mls/hr Vancomycin HCl 1 gm/ Sodium (Chloride) 250 mls @ 165 mls/hr IV Q12H [facility] Stop: 12/07/16 11:59 Last Infusion: 10/11/16 13:42 Dose: Infused Lisinopril (Zestril) 10 mg PO DAILY [facility] Stop: 11/29/16 08:59 Last Admin: 10/11/16 09:35 Dose: 10 mg Miscellaneous (Vancomycin Iv Per Pharmacy) 1 ea [facility] PRN PRN PRN Reason: PROTOCOL Stop: 11/28/16 01:46 Morphine Sulfate (Morphine) 2 mg IVP Q3HR PRN PRN Reason: Pain (Severe) Stop: 11/28/16 01:46 Last Admin: 10/11/16 20:27 Dose: 2 mg Naproxen (Naprosyn) 500 mg PO BIDWM [facility] Stop: 12/03/16 17:59 Last Admin: 10/11/16 17:04 Dose: 500 mg Ondansetron HCl (Zofran) 4 mg IV Q6H PRN PRN Reason: Nausea / Vomiting Stop: 11/28/16 01:46 Pantoprazole Sodium (Protonix) 40 mg PO DAILY [facility] Stop: 12/03/16 08:59 Last Admin: 10/11/16 09:36 Dose: 40 mg Rifampin (Rifadin) 300 mg PO BID [facility] Stop: 12/08/16 16:59 Last Admin: 10/11/16 16:25 Dose: 300 mg Tamsulosin HCl (Flomax) 0.4 mg PO DAILY [facility] Stop: 11/29/16 08:59 Last Admin: 10/11/16 09:35 Dose: 0.4 mg Wound Care/Dressing Products (Silvasorb) 1 appl TP DAILY [facility] Stop: 11/28/16 12:59 Last Admin: 10/11/16 14:35 Dose: 1 appl General: no acute distress, well developed, well nourished HEENT: atraumatic, normocephalic, PERRLA, EOMI, other (Swelling of the right lower face is better.) Neck: supple, no thyromegaly Cardiovascular: S1S2, regular Lungs: clear to auscultation bilaterally, clear to percussion Abdomen: soft, no tender, no distended Extremities: no cyanosis, no clubbing, no edema Neurological: awake, alert, oriented Infectious Disease Assmt/Plan - Problem List Patient Problems: All Active Problems PALPAIT (Acute) Palpitation (Acute 02/23/14) R00.2 - Assessment Assessment: Impression: 1. 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 wound culture grew MRSA. 2. H/O CA mandile. - Plan Plan: Continue same antibiotics : vanco IV for 6 weeks from now. Continue Rifampin 300 mg po bid for 6 weeks along with vanco. Dc planning. 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 RD consult for right anterior lateral neck submandibular abscess. Pt was sitting upright in bed, alert and pleasant. Observed pt finished 100% of lunch, avg PO intake 100% since adm, meeting nutritional needs. Pt stated pureed meal appears too little for him, RD ensured pt meal provides enough to meet pt's nutritional needs. Discussed texture with pt, pt wants to continue with current diet, no difficulties eating/swalloing , just pain, stated no nutritional concerns at this time. Pt appears nourished, no significant muscle/fat wasting or weight loss noted. Current Diet Order/ Nutrition Support Pureed Pertinent Medications D5, Vancomycin, Morphine, Zofran, Vancomycin Pertinent Labs Reviewed. Nutritional Hx/Data Height 1.73 m Height (Calculated Centimeters) 172.7 Current Weight (lbs) 81.647 kg Weight (Calculated Kilograms) 81.6 Weight (Calculated Grams) 90522.6 Usual body Weight (lbs) 180 [place] Body Weight 154lb Recent Weight Change No Weight Status Overweight GI Symptoms Food Allergies No Cultural/Ethnic/Hindu Belief Unknown. Usual diet at home Unknown. Skin Integrity/Comment: [place] 20. Abscess/open wound to right jaw, otherwise skin intact. Current %PO Good (75-100%) Estimated Nutritional Goals Calories/Kcals/Kg IBW 154lb/70kg Kcals Calculated 1750-2100kcal (25-30kcal/kg) Protein g/kg: IBW Protein Calculated 70g (1g/kg) Fluid: ml 1750-2100ml (1ml/kcal) Nutritional Problem 1. Problem Problem No nutritional problems at this time. Intervention/Recommendation Comments 1. Continue with pureed diet. Avg PO intake is adequate. 2. Monitor weight. Expected Outcomes/Goals Expected Outcomes/Goals 1. PO intake continue to meet 100% of estimated nutritional needs.
[2016-10-12] MEDS: D5-0.45NS 1,000 ML IV SCH (04:16)
[2016-10-12] MEDS: Pantoprazole 40 mg EC Tab PO SCH (08:49)
[2016-10-12] MEDS: Silver Antimicrobial Wound Gel 0.25 oz Tube TP SCH (08:50)
[2016-10-12] MEDS: Rifampin 300 mg Cap PO SCH ×2 (08:50→17:13)
[2016-10-12] MEDS: Morphine Sulfate 2 mg/mL 1mL Syr IVP PRN ×2 (13:43→20:50)
--- NOTE | 2016-10-12 14:21 | Infectious Disease Prog Note ---
Infectious Disease Subjective - Review of Systems Service Date: 10/12/16 Subjective: No change. Infectious Disease Objective - Results Result Diagrams: 10/05/16 05:41 10/09/16 05:12 Recent Labs: Laboratory Last Values WBC 6.9 Th/cmm (4.8-10.8) 10/05/16 05:41 RBC 4.27 Mil/cmm (4.30-5.70) L 10/05/16 05:41 Hgb 12.8 gm/dL (13.2-17.3) L 10/05/16 05:41 Hct 37.1 % (39.0-49.0) L 10/05/16 05:41 MCV 86.9 fl (80-99) 10/05/16 05:41 MCH 29.9 pg (26.0-30.0) 10/05/16 05:41 MCHC Differential 34.4 pg (28.0-36.0) 10/05/16 05:41 RDW 13.9 % (11.5-20.0) 10/05/16 05:41 Plt Count 284 Th/cmm (150-400) 10/05/16 05:41 MPV 5.8 fl 10/05/16 05:41 Neutrophils % 71.0 % (40.0-80.0) 10/05/16 05:41 Lymphocytes % 16.4 % (20.0-50.0) L 10/05/16 05:41 Monocytes % 7.2 % (2.0-10.0) 10/05/16 05:41 Eosinophils % 4.6 % (0.0-5.0) 10/05/16 05:41 Basophils % 0.8 % (0.0-2.0) 10/05/16 05:41 ESR 36 mm/hr (0-20) H 10/03/16 06:26 PT 10.4 SECONDS (9.5-11.5) 09/28/16 21:35 INR 1.00 (0.5-1.4) 09/28/16 21:35 PTT (Actin FS) 25.7 SECONDS (26.0-38.0) L 09/28/16 21:35 Sodium 136 mEq/L (136-145) 10/09/16 05:12 Potassium 4.1 mEq/L (3.5-5.1) 10/09/16 05:12 Chloride 109 mEq/L (98-107) H 10/09/16 05:12 Carbon Dioxide 26.4 mEq/L (21.0-31.0) 10/09/16 05:12 Anion Gap 4.7 (7.0-16.0) L 10/09/16 05:12 BUN 23 mg/dL (7-25) 10/09/16 05:12 Creatinine 1.1 mg/dL (0.7-1.3) 10/09/16 05:12 Est GFR ( Amer) > 60.0 ml/min (>90) 10/09/16 05:12 Est GFR (Non-Af Amer) > 60.0 ml/min 10/09/16 05:12 BUN/Creatinine Ratio 20.9 10/09/16 05:12 Glucose 85 mg/dL (70-105) 10/09/16 05:12 POC Glucose 105 MG/DL (70 - 105) 10/06/16 03:13 Whole Bld Lactic Acid 1.95 mmol/L (0.60-1.99) 09/28/16 21:35 Calcium 8.9 mg/dL (8.6-10.3) 10/09/16 05:12 Total Bilirubin 0.3 mg/dL (0.3-1.0) 10/05/16 05:41 AST 16 U/L (13-39) 10/05/16 05:41 ALT 10 U/L (7-52) 10/05/16 05:41 Alkaline Phosphatase 60 U/L (34-104) 10/05/16 05:41 Creatine Kinase 72 U/L (30-223) 09/28/16 21:35 Troponin I < 0.01 ng/mL (0.01-0.05) L 09/28/16 21:35 Total Protein 7.0 gm/dL (6.0-8.3) 10/05/16 05:41 Albumin 3.4 gm/dL (4.2-5.5) L 10/05/16 05:41 Globulin 3.6 gm/dL 10/05/16 05:41 Albumin/Globulin Ratio 0.9 (1.0-1.8) L 10/05/16 05:41 Vancomycin Trough 20.5 ug/mL (10-20) H 10/12/16 05:46 - Physical Exam Vitals and I&O: Vital Signs Temp 98.4 F 10/12/16 08:00 Pulse 65 10/12/16 08:49 Resp 20 10/12/16 08:00 BP 110/70 10/12/16 08:49 Pulse Ox 95 10/12/16 08:00 Intake & Output 10/11/16 10/12/16 10/12/16 18:59 06:59 18:59 Intake Total 3100 510 Output Total 1600 Balance 1500 510 Intake: Intake, IV Amount 1250 250 D5-0.45NS 1,000 ml @ 70 1000 mls/hr IV .[id number] [facility] Rx #:[id number] Vancomycin HCl 1 gm In 250 250 Sodium Chloride 0.9% 250 ml @ 165 mls/hr IV Q12H [facility] Rx#:[id number] Oral 1850 260 Output: Urine 1600 Other: # Voids 2 Stool Characteristics Soft Soft Formed Formed Active Medications: Current Medications Dextrose/Sodium Chloride (D5-0.45ns) 1,000 mls @ 70 mls/hr IV .[id number] [facility] Stop: 11/29/16 16:12 Last Admin: 10/12/16 04:16 Dose: 70 mls/hr Vancomycin HCl 1 gm/ Sodium (Chloride) 250 mls @ 165 mls/hr IV Q12H [facility] Stop: 12/07/16 11:59 Last Admin: 10/12/16 12:43 Dose: 165 mls/hr Lisinopril (Zestril) 10 mg PO DAILY [facility] Stop: 11/29/16 08:59 Last Admin: 10/12/16 08:49 Dose: 10 mg Miscellaneous (Vancomycin Iv Per Pharmacy) 1 ea MC PRN PRN PRN Reason: PROTOCOL Stop: 11/28/16 01:46 Morphine Sulfate (Morphine) 2 mg IVP Q3HR PRN PRN Reason: Pain (Severe) Stop: 11/28/16 01:46 Last Admin: 10/12/16 13:43 Dose: 2 mg Naproxen (Naprosyn) 500 mg PO BIDWM [facility] Stop: 12/03/16 17:59 Last Admin: 10/12/16 08:50 Dose: 500 mg Ondansetron HCl (Zofran) 4 mg IV Q6H PRN PRN Reason: Nausea / Vomiting Stop: 11/28/16 01:46 Pantoprazole Sodium (Protonix) 40 mg PO DAILY [facility] Stop: 12/03/16 08:59 Last Admin: 10/12/16 08:49 Dose: 40 mg Rifampin (Rifadin) 300 mg PO BID [facility] Stop: 12/08/16 16:59 Last Admin: 10/12/16 08:50 Dose: 300 mg Tamsulosin HCl (Flomax) 0.4 mg PO DAILY [facility] Stop: 11/29/16 08:59 Last Admin: 10/12/16 08:50 Dose: 0.4 mg Wound Care/Dressing Products (Silvasorb) 1 appl TP DAILY [facility] Stop: 11/28/16 12:59 Last Admin: 10/12/16 08:50 Dose: 1 appl General: no acute distress, well developed, well nourished HEENT: atraumatic, normocephalic, PERRLA, EOMI, moist mucous membrane, other ( no more facial swelling.) Neck: supple, no thyromegaly, no lymphadenopathy Cardiovascular: S1S2, regular Lungs: clear to percussion, crackles Abdomen: soft, no tender, no distended, no mass Extremities: no cyanosis, no clubbing, no edema Neurological: awake, alert, oriented Infectious Disease Assmt/Plan - Problem List Patient Problems: All Active Problems PALPAIT (Acute) Palpitation (Acute 02/23/14) R00.2 - Assessment Assessment: Impression: 1. 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 wound culture grew MRSA. 2. H/O CA mandile. - Plan Plan: Continue same antibiotics : vanco IV for 2/6 weeks from now (start date: 2016). Continue Rifampin 300 mg po bid for 6 weeks along with vanco. Dc planning. 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 RD consult for right anterior lateral neck submandibular abscess. Pt was sitting upright in bed, alert and pleasant. Observed pt finished 100% of lunch, avg PO intake 100% since adm, meeting nutritional needs. Pt stated pureed meal appears too little for him, RD ensured pt meal provides enough to meet pt's nutritional needs. Discussed texture with pt, pt wants to continue with current diet, no difficulties eating/swalloing , just pain, stated no nutritional concerns at this time. Pt appears nourished, no significant muscle/fat wasting or weight loss noted. Current Diet Order/ Nutrition Support Pureed Pertinent Medications D5, Vancomycin, Morphine, Zofran, Vancomycin Pertinent Labs Reviewed. Nutritional Hx/Data Height 1.73 m Height (Calculated Centimeters) 172.7 Current Weight (lbs) 81.647 kg Weight (Calculated Kilograms) 81.6 Weight (Calculated Grams) 69164.6 Usual body Weight (lbs) 180 [place] Body Weight 154lb Recent Weight Change No Weight Status Overweight GI Symptoms Food Allergies No Cultural/Ethnic/[place]ian Belief Unknown. Usual diet at home Unknown. Skin Integrity/Comment: [place] 20. Abscess/open wound to right jaw, otherwise skin intact. Current %PO Good (75-100%) Estimated Nutritional Goals Calories/Kcals/Kg IBW 154lb/70kg Kcals Calculated 1750-2100kcal (25-30kcal/kg) Protein g/kg: IBW Protein Calculated 70g (1g/kg) Fluid: ml 1750-2100ml (1ml/kcal) Nutritional Problem 1. Problem Problem No nutritional problems at this time. Intervention/Recommendation Comments 1. Continue with pureed diet. Avg PO intake is adequate. 2. Monitor weight. Expected Outcomes/Goals Expected Outcomes/Goals 1. PO intake continue to meet 100% of estimated nutritional needs.
[2016-10-13] MEDS: D5-0.45NS 1,000 ML IV SCH ×2 (00:14→23:59)
[2016-10-13] MEDS: Pantoprazole 40 mg EC Tab PO SCH (08:51)
[2016-10-13] MEDS: Rifampin 300 mg Cap PO SCH ×2 (09:45→17:23)
[2016-10-13] MEDS: Morphine Sulfate 2 mg/mL 1mL Syr IVP PRN (15:46)
[2016-10-13] MEDS: Hydrocodone/APAP 5mg/325mg Tab PO PRN (23:59)
[2016-10-14] MEDS: Pantoprazole 40 mg EC Tab PO SCH (08:28)
[2016-10-14] MEDS: Rifampin 300 mg Cap PO SCH ×2 (08:29→16:10)
[2016-10-14] MEDS: Silver Antimicrobial Wound Gel 0.25 oz Tube TP SCH (08:29)
--- NOTE | 2016-10-14 14:32 | Infectious Disease Prog Note ---
Infectious Disease Subjective - Review of Systems Service Date: 10/14/16 Subjective: No change. Infectious Disease Objective - Results Result Diagrams: 10/05/16 05:41 10/09/16 05:12 Recent Labs: Laboratory Last Values WBC 6.9 Th/cmm (4.8-10.8) 10/05/16 05:41 RBC 4.27 Mil/cmm (4.30-5.70) L 10/05/16 05:41 Hgb 12.8 gm/dL (13.2-17.3) L 10/05/16 05:41 Hct 37.1 % (39.0-49.0) L 10/05/16 05:41 MCV 86.9 fl (80-99) 10/05/16 05:41 MCH 29.9 pg (26.0-30.0) 10/05/16 05:41 MCHC Differential 34.4 pg (28.0-36.0) 10/05/16 05:41 RDW 13.9 % (11.5-20.0) 10/05/16 05:41 Plt Count 284 Th/cmm (150-400) 10/05/16 05:41 MPV 5.8 fl 10/05/16 05:41 Neutrophils % 71.0 % (40.0-80.0) 10/05/16 05:41 Lymphocytes % 16.4 % (20.0-50.0) L 10/05/16 05:41 Monocytes % 7.2 % (2.0-10.0) 10/05/16 05:41 Eosinophils % 4.6 % (0.0-5.0) 10/05/16 05:41 Basophils % 0.8 % (0.0-2.0) 10/05/16 05:41 ESR 36 mm/hr (0-20) H 10/03/16 06:26 PT 10.4 SECONDS (9.5-11.5) 09/28/16 21:35 INR 1.00 (0.5-1.4) 09/28/16 21:35 PTT (Actin FS) 25.7 SECONDS (26.0-38.0) L 09/28/16 21:35 Sodium 136 mEq/L (136-145) 10/09/16 05:12 Potassium 4.1 mEq/L (3.5-5.1) 10/09/16 05:12 Chloride 109 mEq/L (98-107) H 10/09/16 05:12 Carbon Dioxide 26.4 mEq/L (21.0-31.0) 10/09/16 05:12 Anion Gap 4.7 (7.0-16.0) L 10/09/16 05:12 BUN 23 mg/dL (7-25) 10/09/16 05:12 Creatinine 1.1 mg/dL (0.7-1.3) 10/09/16 05:12 Est GFR ( Amer) > 60.0 ml/min (>90) 10/09/16 05:12 Est GFR (Non-Af Amer) > 60.0 ml/min 10/09/16 05:12 BUN/Creatinine Ratio 20.9 10/09/16 05:12 Glucose 85 mg/dL (70-105) 10/09/16 05:12 POC Glucose 105 MG/DL (70 - 105) 10/06/16 03:13 Whole Bld Lactic Acid 1.95 mmol/L (0.60-1.99) 09/28/16 21:35 Calcium 8.9 mg/dL (8.6-10.3) 10/09/16 05:12 Total Bilirubin 0.3 mg/dL (0.3-1.0) 10/05/16 05:41 AST 16 U/L (13-39) 10/05/16 05:41 ALT 10 U/L (7-52) 10/05/16 05:41 Alkaline Phosphatase 60 U/L (34-104) 10/05/16 05:41 Creatine Kinase 72 U/L (30-223) 09/28/16 21:35 Troponin I < 0.01 ng/mL (0.01-0.05) L 09/28/16 21:35 Total Protein 7.0 gm/dL (6.0-8.3) 10/05/16 05:41 Albumin 3.4 gm/dL (4.2-5.5) L 10/05/16 05:41 Globulin 3.6 gm/dL 10/05/16 05:41 Albumin/Globulin Ratio 0.9 (1.0-1.8) L 10/05/16 05:41 Vancomycin Trough 20.5 ug/mL (10-20) H 10/12/16 05:46 - Physical Exam Vitals and I&O: Vital Signs Temp 97.2 F 10/14/16 12:00 Pulse 87 10/14/16 12:00 Resp 16 10/14/16 12:00 BP 145/86 10/14/16 12:00 Pulse Ox 99 10/14/16 12:00 Intake & Output 10/13/16 10/14/16 10/14/16 18:59 06:59 18:59 Intake Total 490 1250 Output Total 600 Balance 490 650 Intake: Intake, IV Amount 250 1250 D5-0.45NS 1,000 ml @ 70 1000 mls/hr IV .[id number] [facility] Rx #:[id number] Vancomycin HCl 1 gm In 250 250 Sodium Chloride 0.9% 250 ml @ 165 mls/hr IV Q12H [facility] Rx#:[id number] Oral 240 Output: Urine 600 Other: # Voids 2 Stool Characteristics Soft Soft Soft Formed Formed Formed Active Medications: Current Medications Acetaminophen/Hydrocodone Bitart ([place] 5mg/325mg) 1 tab PO Q6H PRN PRN Reason: Pain (Moderate) Stop: 12/12/16 23:34 Last Admin: 10/13/16 23:59 Dose: 1 tab Dextrose/Sodium Chloride (D5-0.45ns) 1,000 mls @ 70 mls/hr IV .[id number] [facility] Stop: 11/29/16 16:12 Last Admin: 10/13/16 23:59 Dose: 70 mls/hr Vancomycin HCl 1 gm/ Sodium (Chloride) 250 mls @ 165 mls/hr IV Q12H [facility] Stop: 12/07/16 11:59 Last Admin: 10/14/16 11:45 Dose: 165 mls/hr Lisinopril (Zestril) 10 mg PO DAILY [facility] Stop: 11/29/16 08:59 Last Admin: 10/14/16 08:28 Dose: 10 mg Miscellaneous (Vancomycin Iv Per Pharmacy) 1 ea MC PRN PRN PRN Reason: PROTOCOL Stop: 11/28/16 01:46 Naproxen (Naprosyn) 500 mg PO BIDWM [facility] Stop: 12/03/16 17:59 Last Admin: 10/14/16 08:28 Dose: 500 mg Ondansetron HCl (Zofran) 4 mg IV Q6H PRN PRN Reason: Nausea / Vomiting Stop: 11/28/16 01:46 Pantoprazole Sodium (Protonix) 40 mg PO DAILY [facility] Stop: 12/03/16 08:59 Last Admin: 10/14/16 08:28 Dose: 40 mg Rifampin (Rifadin) 300 mg PO BID [facility] Stop: 12/08/16 16:59 Last Admin: 10/14/16 08:29 Dose: 300 mg Tamsulosin HCl (Flomax) 0.4 mg PO DAILY [facility] Stop: 11/29/16 08:59 Last Admin: 10/14/16 08:28 Dose: 0.4 mg Wound Care/Dressing Products (Silvasorb) 1 appl TP DAILY [facility] Stop: 11/28/16 12:59 Last Admin: 10/14/16 08:29 Dose: 1 appl General: no acute distress, well developed, well nourished HEENT: atraumatic, normocephalic, PERRLA Neck: supple, no thyromegaly Cardiovascular: S1S2, regular Lungs: no clear to auscultation bilaterally, no clear to percussion Abdomen: soft, no tender, no distended Extremities: no cyanosis, no clubbing, no edema Neurological: awake, alert, oriented, CN 2-12 intact Skin: intact Infectious Disease Assmt/Plan - Problem List Patient Problems: All Active Problems PALPAIT (Acute) Palpitation (Acute 02/23/14) R00.2 - Assessment Assessment: Impression: 1. 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 wound culture grew MRSA. 2. H/O CA mandile. - Plan Plan: Continue same antibiotics : vanco IV for 2/6 weeks from now (start date: 2016). Continue Rifampin 300 mg po bid for 6 weeks along with vanco. Dc planning. 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 RD consult for right anterior lateral neck submandibular abscess. Pt was sitting upright in bed, alert and pleasant. Observed pt finished 100% of lunch, avg PO intake 100% since adm, meeting nutritional needs. Pt stated pureed meal appears too little for him, RD ensured pt meal provides enough to meet pt's nutritional needs. Discussed texture with pt, pt wants to continue with current diet, no difficulties eating/swalloing , just pain, stated no nutritional concerns at this time. Pt appears nourished, no significant muscle/fat wasting or weight loss noted. Current Diet Order/ Nutrition Support Pureed Pertinent Medications D5, Vancomycin, Morphine, Zofran, Vancomycin Pertinent Labs Reviewed. Nutritional Hx/Data Height 1.73 m Height (Calculated Centimeters) 172.7 Current Weight (lbs) 81.647 kg Weight (Calculated Kilograms) 81.6 Weight (Calculated Grams) 86750.6 Usual body Weight (lbs) 180 [place] Body Weight 154lb Recent Weight Change No Weight Status Overweight GI Symptoms Food Allergies No Cultural/Ethnic/Yarsanism Belief Unknown. Usual diet at home Unknown. Skin Integrity/Comment: [place] 20. Abscess/open wound to right jaw, otherwise skin intact. Current %PO Good (75-100%) Estimated Nutritional Goals Calories/Kcals/Kg IBW 154lb/70kg Kcals Calculated 1750-2100kcal (25-30kcal/kg) Protein g/kg: IBW Protein Calculated 70g (1g/kg) Fluid: ml 1750-2100ml (1ml/kcal) Nutritional Problem 1. Problem Problem No nutritional problems at this time. Intervention/Recommendation Comments 1. Continue with pureed diet. Avg PO intake is adequate. 2. Monitor weight. Expected Outcomes/Goals Expected Outcomes/Goals 1. PO intake continue to meet 100% of estimated nutritional needs.
[2016-10-14] MEDS: Hydrocodone/APAP 5mg/325mg Tab PO PRN (21:42)
[2016-10-15] MEDS: Pantoprazole 40 mg EC Tab PO SCH (08:20)
[2016-10-15] MEDS: Rifampin 300 mg Cap PO SCH (08:20)
[2016-10-15] MEDS: Silver Antimicrobial Wound Gel 0.25 oz Tube TP SCH (08:20)
[2016-10-15] MEDS: D5-0.45NS 1,000 ML IV SCH (09:56)
--- NOTE | 2016-10-16 20:03 | Discharge Summary ---
PRINCIPAL DIAGNOSES: 1. Right mandibular osteomyelitis, cellulitis with infected open wound, required long-term IV antibiotic. 2. History of throat cancer status post radiation therapy. 3. Hypertension. 4. BPH. 5. Degenerative joint disease. 6. Chronic pain syndrome. BRIEF STATEMENT FOR THE REASON FOR ADMISSION: This is a 56-year-old -[place]ag[place] male with history of squamous cell carcinoma of throat diagnosed in 2009. At that time, the patient underwent radiation therapy. Subsequently, the patient developed osteonecrosis of jaw. He presented to the Emergency Room for open wound on his right lower mandible with significant amount of pain. The patient was evaluated and subsequently admitted to the hospital for further treatment. Please refer to my dictated medical H and P for further information. HOSPITAL COURSE: The patient was admitted to Med/Surg floor. IV antibiotic was started. Infectious Disease consultation was also requested. I did ask case management to see this patient, to transfer the patient to appropriate care where the patient can have ENT care. finance business manager [facility] Multiple attempts were made to transfer this patient to higher level of care, but it was not successful at that time. I was told by manager of case that the patient can have ENT evaluation as an outpatient as well. Though, the patient has osteomyelitis, Infectious Disease suggested that the patient should be on IV antibiotic for a while. The patient did have MRSA. It came out positive. Symptoms management was also provided. Wound care was also given as well. The patient was also homeless during the stay in the hospital. Appropriate discharge needs to be addressed as well. After making multiple attempts with health plan as well as the social service being involved and trying to transfer this patient to right place, we were able to transfer this patient to [facility] where the patient can get his IV antibiotic and from there the patient can receive his further ENT care at [facility], which can be arranged as an outpatient once the patient finishes IV antibiotic. The patient was safely discharged to group home with continuation of same medicine, which the patient was receiving which include [place], Zosyn, lisinopril, vancomycin, naproxen, Zofran, Protonix, rifampin, Flomax, and local dressing. The patient will be seen by his new associate attorney. JOB# [id number]
== END 2016-10-15 17:30 | DRG 347 ==
LOC: ER 21:10 → MSI 09-29 01:45
PROVIDERS: ADMIT Internal Medicine; ATTEND Internal Medicine
DX: M84.58XA Pathological fracture in neoplastic disease, other specified site, initial encounter for fracture (principal); M87.38 Other secondary osteonecrosis, other site; I10 Essential (primary) hypertension; L03.211 Cellulitis of face; D49.2 Neoplasm of unspecified behavior of bone, soft tissue, and skin; B95.62 Methicillin resistant Staphylococcus aureus infection as the cause of diseases classified elsewhere; M27.2 Inflammatory conditions of jaws; N40.0 Benign prostatic hyperplasia without lower urinary tract symptoms; M19.90 Unspecified osteoarthritis, unspecified site; F17.210 Nicotine dependence, cigarettes, uncomplicated; G89.4 Chronic pain syndrome; Z85.89 Personal history of malignant neoplasm of other organs and systems; Z82.49 Family history of ischemic heart disease and other diseases of the circulatory system; Z88.8 Allergy status to other drugs, medicaments and biological substances
CPT/HCPCS: 36415-UA; 70490-TC; 80048-TC; 80053-TC; 80202-TC; 82550-TC; 82948-90; 83605; 84484-TC; 85025-TC; 85610-TC; 85652-TC; 85730-TC; 87070-90; 93005; 96375; 96376; J0696; J2270; J2543; J3370; J7040; J7042; Z7610